=== PATIENT | male | born 1945 | race Caucasian/White ===

== ENCOUNTER 2020-04-11 09:27 | Outpatient (REF) | payer MEDICARE, SELFPAY ==
[2020-04-11 11:53] LABS: Alanine Aminotransferase 9 U/L (0-40); Albumin Level 4.1 g/dL (3.5-5.0); Alkaline Phosphatase 93 U/L (39-117); Anion Gap 11 (12-20); Aspartate Amino Transferase 14 U/L (5-37); Bilirubin Total 0.8 mg/dL (0.0-1.0); Blood Urea Nitrogen 18 mg/dL (9-16); Calcium 8.8 mg/dL (8.4-10.2); Carbon Dioxide 28 mmol/L (22-29); Chloride 105 mmol/L (96-108); Cholesterol 182 mg/dL; Estimated Glomerular Filt Rate > 60; Glucose Fasting 95 mg/dL (60-99); HDL Cholesterol 37 mg/dL; LDL Cholesterol Calculated 130 mg/dl; Potassium 4.3 mmol/L (3.3-5.1); Sodium 140 mmol/L (135-145); Total Protein 7.2 g/dL (6.5-8.0); Triglycerides 77 mg/dL
[2020-04-11 12:18] LABS: Prostate Specific Antigen Scr 1.62 ng/mL (<0.05-4.0); TSH reflex Free T4 1.39 uIU/mL (0.32-4.0)
== END 2020-04-11 09:28 | disposition home or self-care (01) ==
LOC: HO.HMGCLDS 09:27
PROVIDERS: PCP Nurse Practitioner Family; Visit Provider Nurse Practitioner Family
DX: E78.5 Hyperlipidemia, unspecified (principal); Z12.5 Encounter for screening for malignant neoplasm of prostate
CPT/HCPCS: 36415; 80053; 80061; 84153; 84443

== ENCOUNTER 2020-05-17 09:28 | Outpatient (REF) | payer MEDICARE, SELFPAY ==
--- NOTE | ~2020-05-17 | XR_ITS ---
EXAMINATION: XR ANKLE, RIGHT XR FOOT, RIGHT CLINICAL INFORMATION: Pain joints right ankle and right foot. COMPARISON: None TECHNIQUE: Right ankle is imaged in 2 views. The right foot is imaged in 2 views. There is also a lateral view of the combined right ankle and foot for a total of 5 views. FINDINGS: The right ankle shows no fracture or dislocation. The ankle mortise is symmetric and normally aligned. Tibiotalar joint shows no narrowing or erosive change. No visible osteochondral lesion talar dome. There is lateral soft tissue swelling overlying the malleolus. The subtalar joint is unremarkable. There is benign longitudinal mineralization in the distal Achilles consistent with calcific tendinosis. The retrocalcaneal recess is preserved. There is small to moderate plantar calcaneal spur and mild dorsal spurring distal talus. The midfoot and forefoot shows no fracture or dislocation or erosive arthropathy. There are osteoarthritic changes first MTP with bunion, spurring medial first metatarsal head, and hallux valgus. There are vascular calcifications present consistent with atherosclerotic changes. XR/XR foot RT min 3V IMPRESSION: 1. No fracture or dislocation ankle or foot. 2. Calcific tendinosis distal Achilles. Plantar calcaneal spur. 3. Hallux valgus and bunion first MTP with mild secondary degenerative changes. 4. Atherosclerotic calcifications vasculature.
--- NOTE | ~2020-05-17 | XR_ITS ---
EXAMINATION: XR ANKLE, RIGHT XR FOOT, RIGHT CLINICAL INFORMATION: Pain joints right ankle and right foot. COMPARISON: None TECHNIQUE: Right ankle is imaged in 2 views. The right foot is imaged in 2 views. There is also a lateral view of the combined right ankle and foot for a total of 5 views. FINDINGS: The right ankle shows no fracture or dislocation. The ankle mortise is symmetric and normally aligned. Tibiotalar joint shows no narrowing or erosive change. No visible osteochondral lesion talar dome. There is lateral soft tissue swelling overlying the malleolus. The subtalar joint is unremarkable. There is benign longitudinal mineralization in the distal Achilles consistent with calcific tendinosis. The retrocalcaneal recess is preserved. There is small to moderate plantar calcaneal spur and mild dorsal spurring distal talus. The midfoot and forefoot shows no fracture or dislocation or erosive arthropathy. There are osteoarthritic changes first MTP with bunion, spurring medial first metatarsal head, and hallux valgus. There are vascular calcifications present consistent with atherosclerotic changes. XR/XR ankle RT min 3V IMPRESSION: 1. No fracture or dislocation ankle or foot. 2. Calcific tendinosis distal Achilles. Plantar calcaneal spur. 3. Hallux valgus and bunion first MTP with mild secondary degenerative changes. 4. Atherosclerotic calcifications vasculature.
== END 2020-05-17 09:29 | disposition home or self-care (01) ==
LOC: HO.HMGCX 09:28
PROVIDERS: PCP Nurse Practitioner Family; Visit Provider Hospitalist
DX: M25.571 Pain in right ankle and joints of right foot (principal)
CPT/HCPCS: 73610; 73630

== ENCOUNTER 2020-12-17 07:51 | Outpatient (REF) | payer MEDICARE, SELFPAY ==
[2020-12-17 11:42] LABS: Appearance Urine CLEAR; Color Urine YELLOW; Glucose Urine UA NEG (NEG); Leukocyte Esterase Urine TRACE (NEG); Nitrite Urine NEG (NEG); UACC Culture Trigger YES; Urine Blood NEG (NEG); Urine Ketones NEG (NEG); Urine Protein NEG (NEG-TRACE)
[2020-12-17 12:15] LABS: Alanine Aminotransferase 13 U/L (0-40); Albumin Level 3.9 g/dL (3.5-5.0); Alkaline Phosphatase 89 U/L (39-117); Anion Gap 10 (12-20); Aspartate Amino Transferase 15 U/L (5-37); Bilirubin Total 0.6 mg/dL (0.0-1.0); Blood Urea Nitrogen 15 mg/dL (9-16); Calcium 8.4 mg/dL (8.4-10.2); Carbon Dioxide 26 mmol/L (22-29); Chloride 107 mmol/L (96-108); Cholesterol 163 mg/dL; Estimated Glomerular Filt Rate > 60; Glucose Fasting 93 mg/dL (60-99); HDL Cholesterol 37 mg/dL; LDL Cholesterol Calculated 114 mg/dl; Potassium 4.3 mmol/L (3.3-5.1); Sodium 139 mmol/L (135-145); TSH reflex Free T4 1.83 uIU/mL (0.32-4.0); Total Protein 6.7 g/dL (6.5-8.0); Triglycerides 62 mg/dL
[2020-12-17 14:24] LABS: RBC Urine 0 /HPF (0)
== END 2020-12-17 07:52 | disposition home or self-care (01) ==
LOC: HO.HMGCLDS 07:51
PROVIDERS: PCP Nurse Practitioner Family; Visit Provider Nurse Practitioner Family
DX: Z00.00 Encounter for general adult medical examination without abnormal findings (principal)
CPT/HCPCS: 36415; 80053; 80061; 81001; 84443; 87086

== ENCOUNTER 2021-11-05 08:06 | Outpatient (REF) | payer MEDICARE, SELFPAY ==
[2021-11-05 11:59] LABS: Appearance Urine Clear; Color Urine Yellow; Glucose Urine UA Negative (Negative); Leukocyte Esterase Urine Moderate (2+) (Negative); Nitrite Urine Negative (Negative); PH 6.5 (5.0-9.0); UMIC TRIGGER UACC YES; Urine Blood Negative (Negative); Urine Ketones Negative (Negative); Urine Protein Trace mg/dL (Neg-Trace)
[2021-11-05 12:06] LABS: Alanine Aminotransferase 16 U/L (0-40); Albumin Level 4.1 g/dL (3.5-5.0); Alkaline Phosphatase 90 U/L (39-117); Anion Gap 14 (12-20); Aspartate Amino Transferase 16 U/L (5-37); Bilirubin Total 0.4 mg/dL (0.0-1.0); Blood Urea Nitrogen 16 mg/dL (9-16); Calcium 9.1 mg/dL (8.4-10.2); Carbon Dioxide 26 mmol/L (22-29); Chloride 106 mmol/L (96-108); Cholesterol 182 mg/dL; Estimated Glomerular Filt Rate > 60; Glucose Fasting 94 mg/dL (60-99); HDL Cholesterol 35 mg/dL; LDL Cholesterol Calculated 129 mg/dl; Potassium 4.2 mmol/L (3.3-5.1); Sodium 142 mmol/L (135-145); Total Protein 7.2 g/dL (6.5-8.0); Triglycerides 91 mg/dL
[2021-11-05 12:08] LABS: Bacteria Urine None Seen (None Seen); Hyaline Casts Urine 0-2 /LPF (0-2); Squamous Epithelial Cell Urine 0-2 /HPF (0-2); UACC Culture Trigger YES
[2021-11-05 12:12] LABS: TSH reflex Free T4 1.51 uIU/mL (0.32-4.0)
== END 2021-11-05 08:07 | disposition home or self-care (01) ==
LOC: HO.HMGCLDS 08:06
PROVIDERS: PCP Nurse Practitioner Family; Visit Provider Nurse Practitioner Family
DX: Z12.5 Encounter for screening for malignant neoplasm of prostate (principal); I10 Essential (primary) hypertension
CPT/HCPCS: 36415; 80053; 80061; 81001; 81003; 84153; 84443; 87086

== ENCOUNTER 2021-11-12 09:49 | Outpatient (REF) | payer MEDICARE, SELFPAY ==
[2021-11-12 11:24] LABS: Appearance Urine Clear; Color Urine Yellow; Glucose Urine UA Negative (Negative); Leukocyte Esterase Urine Small (1+) (Negative); Nitrite Urine Negative (Negative); Specific Gravity - Urine 1.025 (1.005-1.025); UMIC TRIGGER UA YES; Urine Blood Negative (Negative); Urine Ketones Trace mg/dL (Negative); Urine Protein Negative (Neg-Trace)
[2021-11-12 11:37] LABS: Bacteria Urine None Seen (None Seen); Hyaline Casts Urine 0-2 /LPF (0-2); RBC Urine 0-2 /HPF (0-2); Squamous Epithelial Cell Urine 0-2 /HPF (0-2); WBC Urine 0-5 /HPF (0-5)
== END 2021-11-12 09:50 | disposition home or self-care (01) ==
LOC: HO.HMGCLDS 09:49
PROVIDERS: PCP Nurse Practitioner Family; Visit Provider Nurse Practitioner Family
DX: R82.90 Unspecified abnormal findings in urine (principal)
CPT/HCPCS: 81001; 87086

== ENCOUNTER 2022-07-09 09:07 | Outpatient (REF) | payer MEDICARE, SELFPAY ==
--- NOTE | 2022-07-09 09:30 | EMG_ITS ---
Please see scanned EMG / Nerve Conduction Report. MTDD
== END 2022-07-09 09:08 | disposition home or self-care (01) ==
LOC: HO.NEURO 09:07
PROVIDERS: PCP Nurse Practitioner Family; Visit Provider Nurse Practitioner Family
DX: R20.0 Anesthesia of skin (principal)
CPT/HCPCS: 95885; 95910

== ENCOUNTER 2022-11-17 07:31 | Outpatient (AMB) | payer MEDICARE, SELFPAY ==
--- NOTE | 2022-11-17 07:36 | MHC.PC.OV ---
Vital Signs 11/17/22 07:38 Height 5 ft 3 in Weight 197 lb 2 oz BMI 34.9 BP 130/74 Blood Pressure Location Rt brachial Position Sitting Pulse 78 Pulse Source Pulse Oximeter Pulse Oximetry (%) 94 Oxygen Delivery Method Room Air Intake Visit Reasons: Annual Physical Intake Note: pt had his flu vaccine last week Allergies No Known Allergies [No Known Allergies*] Allergy (Verified 11/17/22 07:44) Medication List - Last Reconciled 11/17/22 by [facility] amlodipine 5 mg PO DAILY aspirin 81 mg PO DAILY doxazosin 2 mg PO BEDTIME losartan 100 mg PO DAILY 90 days omeprazole 40 mg PO QAM Tobacco use date assessed: 11/17/22 Fall risk assessment: No Falls in past year Last assessed Fall Risk: 11/17/22 Dental Screening Dental Screen Date: 11/17/22 Did you have a dental visit in the last 12 months?: Yes Did you have a dental problem in the last 6 months where you did not have access to dental care?: No Was dental information given to patient?: Patient has dentist HPI Annual Physical HPI Details Pt is here for a PE. Will order labs. Colon screen is up to date. Due for PSA, will order. Denies dribbling with urination, weak stream, and nocturia. [facility] Medical History Nephrotic syndrome Dyslipidemia Large B-cell lymphoma GERD (gastroesophageal reflux disease) History of renal failure Surgical History H/O colonoscopy Hx of left inguinal hernia repair History of left knee replacement Social History Housing: House Alcohol intake: never Patient Tobacco Use Status: Never used Tobacco e-Cigarette/Vaping Use: Never Used Second Hand Smoke Exposure: No service: No Current occupational status: retired Cognitive needs: No Hearing needs: No Vision needs: No Questionnaire Thrive Questionnaire Date Thrive assessed: 11/12/21 BALJINDER-7 AMB Questionnaire BALJINDER-7 Date BALJINDER - 7 assessed: 11/12/21 Source: Developed by Drs. Jensen Crocker, Meggan B.W. Wolfgang Nixon and colleagues, with an educational jourdan from [employer]. Review of Systems Const Denies chills and Denies fever(s) Eyes Denies blurry vision ENT Denies vertigo, Denies dizziness and Denies sore throat Card Denies chest pain at rest, Denies chest pain with activity, Denies diaphoresis, Denies dyspnea and Denies dyspnea on exertion Resp Denies cough, Denies dyspnea, Denies dyspnea on exertion and Denies wheezing GI Denies abdominal pain, Denies melena, Denies hematochezia, Denies constipation, Denies diarrhea and Denies loose stools Denies hematuria Musc Denies numbness and Denies tingling Skin/Breast Denies lesions Neuro Denies vertigo, Denies dizziness, Denies numbness and Denies tingling Psych Denies anxiety, Denies depression, Denies homicidal ideation, Denies suicidal ideation and Denies other (substance abuse) Aller/Immun Denies wheezing Physical exam (Primary Care) Vital Signs: Last Vital Signs Pulse 78 11/17/22 07:38 BP 130/74 11/17/22 07:38 Pulse Ox 94 11/17/22 07:38 Oxygen Delivery Method Room Air 11/17/22 07:38 BMI result Body Mass Index 34.9 Tobacco/Smoking Status: Tobacco use Status Tobacco use date assessed 11/17/22 11/17/22 07:46 Patient Tobacco Use Status Never used Tobacco 11/17/22 07:36 e-Cigarette/Vaping Use Never Used 11/17/22 07:36 Thrive Assessment: Date of Thrive Assessment Date Thrive assessed 11/12/21 11/17/22 07:36 Const General: cooperative Nutritional Appearance: obese Orientation/consciousness: patient oriented x3 HENMT Head: Yes normal to inspection, Yes normocephalic and Yes atraumatic Ears: TM's normal bilaterally Eyes General: appearance normal, both eyes and all related structures Alignment and Position: alignment normal and position normal Neck Neck: Yes normal visual inspection and Yes no lymphadenopathy Thyroid: Thyroid normal Resp Effort & Inspection: normal respiratory effort Auscultation: clear to auscultation bilaterally Cardio Rate: regular rate Rhythm: regular rhythm Heart sounds: S1 normal heart sound present, S2 normal heart sound present and no murmurs GI Palpation (GI): Soft to palpation and nontender Auscultation: normal bowel sounds Male General Exam: Yes normal external exam Penis: normal penis Scrotum: scrotum normal, testes descended bilaterally and no inguinal hernias Testes: no testicular mass Skin Rashes: no rashes Neuro General: patient oriented x3, moves all extremities, no focal motor deficits and deep tendon reflexes 2+ bilaterally Romberg Test: Negative Psych Appearance: grossly normal Mental Status: mental status grossly normal Speech and movement: Normal speech and movement present Affect: normal affect Attitude: cooperative Thought process: Normal thought process present Thought content: Normal thought content present Insight: Good insight present (Psych) Judgement: Good judgement present (Psych) Assessment and Plan Assessment & Plan (1) Physical exam: Code(s): Z00.00 - Encounter for general adult medical examination without abnormal findings Plan: Labs ordered (2) Screening PSA (prostate specific antigen): Code(s): Z12.5 - Encounter for screening for malignant neoplasm of prostate Plan: PSA ordered Plan The patient agreed to the use of a medical device sales representative for this encounter. Scribed for PABLITO Vuong by Teri Ness medical device sales representative, on 11/17/2022 at 07:55 EST Orders: Orders Complete Blood Count Auto Diff Today Z00.00 - Encounter for general adult medical examination without abnormal findings TSH reflex Free T4 Today Z00.00 - Encounter for general adult medical examination without abnormal findings UA CC w/rflx Micro + Cult Today Z00.00 - Encounter for general adult medical examination without abnormal findings Comprehensive [place]. Panel Fast Today Z00.00 - Encounter for general adult medical examination without abnormal findings Lipid Panel Today Z00.00 - Encounter for general adult medical examination without abnormal findings Prostate Specific Antigen Scr Today Z12.5 - Encounter for screening for malignant neoplasm of prostate Coding Level of Care Code Est Pt Prev Care >65y(05596) Diagnoses Physical exam Z00.00 Screening PSA (prostate specific antigen) Z12.5
[2022-11-17 07:38] VITALS: BP 130/74; PULSE 78; O2SAT 94; BMI 34.9
== END 2022-11-17 08:34 | disposition home or self-care (01) ==
PROVIDERS: Visit Provider Nurse Practitioner Family
DX: Z00.00 Encounter for general adult medical examination without abnormal findings (principal); Z12.5 Encounter for screening for malignant neoplasm of prostate
CPT/HCPCS: 99397

== ENCOUNTER 2023-03-12 07:41 | Outpatient (REF) | payer MEDICARE, SELFPAY ==
[2023-03-12 11:16] LABS: MANUAL DIFF FLAG NO
[2023-03-12 11:27] LABS: Appearance Urine Clear; Color Urine Yellow; Glucose Urine UA Negative (Negative); Leukocyte Esterase Urine Trace (Negative); Nitrite Urine Negative (Negative); PH 6.5 (5.0-9.0); UMIC TRIGGER UACC YES; Urine Blood Negative (Negative); Urine Ketones Negative (Negative); Urine Protein Negative (Neg-Trace)
[2023-03-12 11:33] LABS: Bacteria Urine None Seen (None Seen); Hyaline Casts Urine 0-2 /LPF (0-2); RBC Urine 0-2 /HPF (0-2); Squamous Epithelial Cell Urine 0-2 /HPF (0-2); WBC Urine 0-5 /HPF (0-5)
[2023-03-12 11:46] LABS: Basophils Absolute Auto 0.1 X10*3/uL (0.0-0.2); Basophils Percent Auto 0.8 % (0-2); Eosinophils Absolute Auto 0.1 X10*3/uL (0.0-0.4); Eosinophils Percent Auto 1.6 % (0-4); Hematocrit 39.9 % (42.0-52.0); Hemoglobin 13.1 g/dl (14.0-18.0); Imm Gran Abs Auto 0.01 X10*3/uL (0.00-0.03); Imm Gran Pct Auto 0.2 % (0.0-0.4); Lymphocytes Absolute Auto 1.6 X10*3/uL (1.2-4.9); Lymphocytes Percent Auto 24.9 % (20-40); Mean Corpuscular HGB Conc 32.8 g/dl (31.0-36.0); Mean Corpuscular Hemoglobin 31.3 pg (27.0-33.0); Mean Corpuscular Volume 95.2 fL (80.0-98.0); Mean Platelet Volume 9.8 fL (9.4-12.4); Monocytes Absolute Auto 0.6 X10*3/uL (0.1-1.2); Monocytes Percent Auto 9.4 % (2-11); Neutrophils Percent Auto 63.1 % (45-73); Platelet Count 202 X10*3/uL (160-400); Red Blood Count 4.19 X10*6/uL (4.60-5.80); Red Cell Distribution Width 13.2 % (11.0-16.0); White Blood Count 6.3 X10*3/uL (4.8-10.8)
[2023-03-12 12:04] LABS: Alanine Aminotransferase 13 U/L (0-40); Albumin Level 3.9 g/dL (3.5-5.0); Alkaline Phosphatase 83 U/L (39-117); Anion Gap 10 (12-20); Aspartate Amino Transferase 16 U/L (5-37); Bilirubin Total 0.4 mg/dL (0.0-1.0); Blood Urea Nitrogen 17 mg/dL (9-16); Calcium 9.3 mg/dL (8.4-10.2); Carbon Dioxide 27 mmol/L (22-29); Chloride 107 mmol/L (96-108); Cholesterol 170 mg/dL (<200); Estimated Glomerular Filt Rate > 60; Glucose Fasting 87 mg/dL (60-99); HDL Cholesterol 44 mg/dL (>40); LDL Cholesterol Calculated 114 mg/dL (<100); Potassium 4.2 mmol/L (3.3-5.1); Sodium 140 mmol/L (135-145); Total Protein 7.4 g/dL (6.5-8.0); Triglycerides 61 mg/dL (<150)
[2023-03-12 12:10] LABS: Prostate Specific Antigen Scr 1.66 ng/mL (<0.05-4.0)
[2023-03-12 12:30] LABS: TSH reflex Free T4 1.67 uIU/mL (0.32-4.0)
== END 2023-03-12 07:42 | disposition home or self-care (01) ==
LOC: HO.HMGCLDS 07:41
PROVIDERS: PCP Nurse Practitioner Family; Visit Provider Nurse Practitioner Family
DX: Z00.00 Encounter for general adult medical examination without abnormal findings (principal); Z12.5 Encounter for screening for malignant neoplasm of prostate
CPT/HCPCS: 36415; 80053; 80061; 81001; 84153; 84443; 85025

== ENCOUNTER 2023-06-01 14:39 | Outpatient (AMB) | payer MEDICARE, SELFPAY ==
--- NOTE | 2023-06-01 15:07 | A.OFFPC_ITS ---
Vital Signs 06/01/23 15:08 Height 5 ft 3 in Weight 202 lb BMI 35.8 BP 130/84 Blood Pressure Location Lt brachial Position Sitting Pulse 70 Pulse Source Pulse Oximeter Pulse Oximetry (%) 95 Oxygen Delivery Method Room Air Intake Visit Reasons: RT TKA Pre Op on 06/17/2023 w/EKG Intake Note: Patient here for pre op clearance. Allergies No Known Allergies [No Known Allergies*] Allergy (Verified 06/01/23 16:37) Medication List - Last Reconciled 06/01/23 by PABLITO Loco amlodipine 5 mg PO DAILY aspirin 81 mg PO DAILY doxazosin 2 mg PO BEDTIME losartan 100 mg PO DAILY 90 days omeprazole 40 mg PO QAM Tobacco use date assessed: 06/01/23 Fall risk assessment: No Falls in past year Last assessed Fall Risk: 06/01/23 Dental Screening Dental Screen Date: 06/01/23 Did you have a dental visit in the last 12 months?: No Did you have a dental problem in the last 6 months where you did not have access to dental care?: No Was dental information given to patient?: Patient has dentist HPI RT TKA Pre Op on 06/17/2023 w/EKG HPI Details Pt is here for a pre-op evaluation. He is scheduled to undergo a right TKA on 06/16. EKG done in office. Will order labs. [facility] Medical History Nephrotic syndrome Dyslipidemia Large B-cell lymphoma GERD (gastroesophageal reflux disease) History of renal failure Surgical History H/O colonoscopy Hx of left inguinal hernia repair History of left knee replacement Social History Housing: House Alcohol intake: never Patient Tobacco Use Status: Never used Tobacco e-Cigarette/Vaping Use: Never Used Second Hand Smoke Exposure: No service: No Current occupational status: retired Cognitive needs: No Hearing needs: No Vision needs: No Questionnaire Thrive Questionnaire Date Thrive assessed: 11/12/21 AUDIT C Alcohol Use Questionnaire (AUDIT-C) 1. How often do you have a drink containing alcohol?: Never 3. How often do you have six or more drinks on one occasion?: Never Total Score: 0 Score Reviewed/Action Taken: No BALJINDER-7 AMB Questionnaire BALJINDER-7 Date BALJINDER - 7 assessed: 11/12/21 Source: Developed by Drs. Jensen Crocker, Meggan Nixon, Wolfgang Byrd and colleagues, with an educational jourdan from [employer]. Review of Systems Const Denies chills and Denies fever(s) Eyes Denies blurry vision ENT Denies vertigo, Denies dizziness and Denies sore throat Card Denies chest pain at rest, Denies chest pain with activity, Denies diaphoresis, Denies dyspnea and Denies dyspnea on exertion Resp Denies cough, Denies dyspnea, Denies dyspnea on exertion and Denies wheezing GI Denies abdominal pain, Denies melena, Denies hematochezia, Denies constipation, Denies diarrhea and Denies loose stools Denies hematuria Musc Denies numbness and Denies tingling Skin/Breast Denies lesions Neuro Denies vertigo, Denies dizziness, Denies numbness and Denies tingling Psych Denies anxiety, Denies depression, Denies homicidal ideation, Denies suicidal ideation and Denies other (substance abuse) Aller/Immun Denies wheezing Physical exam (Primary Care) Vital Signs: Last Vital Signs Pulse 70 06/01/23 15:08 BP 130/84 06/01/23 15:08 Pulse Ox 95 06/01/23 15:08 Oxygen Delivery Method Room Air 06/01/23 15:08 BMI result Body Mass Index 35.8 Tobacco/Smoking Status: Tobacco use Status Tobacco use date assessed 06/01/23 06/01/23 15:10 Patient Tobacco Use Status Never used Tobacco 06/01/23 15:10 e-Cigarette/Vaping Use Never Used 06/01/23 15:10 Thrive Assessment: Date of Thrive Assessment Date Thrive assessed 11/12/21 06/01/23 15:10 Const General: cooperative Nutritional Appearance: obese Orientation/consciousness: patient oriented x3 Neck Neck: Yes no lymphadenopathy Resp Effort & Inspection: normal respiratory effort Auscultation: clear to auscultation bilaterally Cardio Rate: regular rate Rhythm: regular rhythm Heart sounds: S1 normal heart sound present, S2 normal heart sound present and no murmurs Neuro General: patient oriented x3 Psych Appearance: grossly normal Mental Status: mental status grossly normal Speech and movement: Normal speech and movement present Affect: normal affect Attitude: cooperative Thought process: Normal thought process present Thought content: Normal thought content present Insight: Good insight present (Psych) Judgement: Good judgement present (Psych) Assessment and Plan Assessment & Plan (1) Pre-op evaluation: Code(s): Z01.818 - Encounter for other preprocedural examination Plan: EKG done, labs ordered Plan The patient agreed to the use of a senior medical billing specialist for this encounter. Scribed for ELADIO Vuong-BC by Teri Ness senior medical billing specialist, on 06/01/2023 at 15:40 EST. Orders: Orders Comprehensive [place]. Panel Today Z01.818 - Encounter for other preprocedural examination UA CC w/rflx Micro + Cult Today Z01.818 - Encounter for other preprocedural examination Complete Blood Count Auto Diff Today Z01.818 - Encounter for other preprocedural examination TSH reflex Free T4 Today Z01.818 - Encounter for other preprocedural examination Medications: Refilled omeprazole 40 mg PO QAM 90 caps 1RF Coding Level of Care Code Est Pt Prev Care >65y(76097) Diagnoses Pre-op evaluation Z01.818
[2023-06-01 15:08] VITALS: BP 130/84; PULSE 70; O2SAT 95; BMI 35.8
== END 2023-06-01 16:32 | disposition home or self-care (01) ==
LOC: HO.HMGC 14:39
PROVIDERS: PCP Nurse Practitioner Family; Visit Provider Nurse Practitioner Family
DX: Z01.818 Encounter for other preprocedural examination (principal)
CPT/HCPCS: 93000; 99213

== ENCOUNTER 2023-06-11 09:59 | Outpatient (REF) | payer MEDICARE, SELFPAY ==
[2023-06-11 13:09] LABS: MANUAL DIFF FLAG NO
[2023-06-11 13:12] LABS: Appearance Urine Clear; Color Urine Yellow; Glucose Urine UA Negative (Negative); Leukocyte Esterase Urine Negative (Negative); Nitrite Urine Negative (Negative); PH 7.5 (5.0-9.0); Urine Blood Negative (Negative); Urine Ketones Negative (Negative); Urine Protein Negative (Neg-Trace)
[2023-06-11 13:20] LABS: Basophils Percent Auto 0.5 % (0-2); Eosinophils Absolute Auto 0.1 X10*3/uL (0.0-0.4); Eosinophils Percent Auto 1.5 % (0-4); Hematocrit 38.1 % (42.0-52.0); Hemoglobin 12.6 g/dl (14.0-18.0); Imm Gran Abs Auto 0.02 X10*3/uL (0.00-0.03); Imm Gran Pct Auto 0.3 % (0.0-0.4); Lymphocytes Absolute Auto 1.6 X10*3/uL (1.2-4.9); Mean Corpuscular HGB Conc 33.1 g/dl (31.0-36.0); Mean Corpuscular Hemoglobin 31.5 pg (27.0-33.0); Mean Corpuscular Volume 95.3 fL (80.0-98.0); Mean Platelet Volume 10.1 fL (9.4-12.4); Monocytes Absolute Auto 0.7 X10*3/uL (0.1-1.2); Neutrophils Absolute Auto 4.1 x10*3/uL (2.0-8.3); Neutrophils Percent Auto 63.7 % (45-73); Platelet Count 198 X10*3/uL (160-400); Red Cell Distribution Width 13.4 % (11.0-16.0); White Blood Count 6.5 X10*3/uL (4.8-10.8)
[2023-06-11 14:03] LABS: Alanine Aminotransferase 12 U/L (0-40); Albumin Level 3.9 g/dL (3.5-5.0); Alkaline Phosphatase 84 U/L (39-117); Anion Gap 13 (12-20); Aspartate Amino Transferase 15 U/L (5-37); Bilirubin Total 0.3 mg/dL (0.0-1.0); Blood Urea Nitrogen 24 mg/dL (9-16); Calcium 9.3 mg/dL (8.4-10.2); Carbon Dioxide 25 mmol/L (22-29); Chloride 107 mmol/L (96-108); Estimated Glomerular Filt Rate > 60; Glucose Random 84 mg/dL (60-115); Potassium 4.8 mmol/L (3.3-5.1); Sodium 140 mmol/L (135-145); Total Protein 7.6 g/dL (6.5-8.0)
[2023-06-11 14:09] LABS: TSH reflex Free T4 1.49 uIU/mL (0.32-4.0)
== END 2023-06-11 10:00 | disposition home or self-care (01) ==
LOC: HO.HMGCLDS 09:59
PROVIDERS: PCP Nurse Practitioner Family; Visit Provider Nurse Practitioner Family
DX: Z01.818 Encounter for other preprocedural examination (principal)
CPT/HCPCS: 36415; 80053; 81003; 84443; 85025

== ENCOUNTER 2024-04-21 09:48 | Outpatient (AMB) | payer MEDICARE, SELFPAY ==
[2024-04-21 10:19] VITALS: BP 136/80; PULSE 85; TEMP 36.7; O2SAT 96; BMI 36.1
--- NOTE | 2024-04-21 10:19 | MHC.PC.OV ---
Vital Signs 04/21/24 10:19 Height 5 ft 3 in Weight 204 lb BMI 36.1 BP 136/80 Blood Pressure Location Lt brachial Position Sitting Pulse 85 Pulse Source Pulse Oximeter Temp 98.0 F Temp Source Oral Pulse Oximetry (%) 96 Intake Visit Reasons: follow up re back pain Intake Note: pt is here for follow up re back pain Infrastructure Solutions Architect Required: No Accompanied by: Self / Same As Patient Allergies No Known Allergies [No Known Allergies*] Allergy (Verified 04/21/24 11:09) Medication List - Last Reconciled 04/21/24 by Carter Zavala, [employer]TER- amlodipine 5 mg PO DAILY aspirin 81 mg PO DAILY doxazosin 2 mg PO BEDTIME losartan 100 mg PO DAILY 90 days omeprazole 40 mg PO QAM Tobacco use date assessed: 04/21/24 Fall risk assessment: No Falls in past year Last assessed Fall Risk: 04/21/24 Dental Screening Dental Screen Date: 04/21/24 Did you have a dental visit in the last 12 months?: Yes Did you have a dental problem in the last 6 months where you did not have access to dental care?: No Was dental information given to patient?: Patient has dentist HPI follow up re back pain HPI Details Chief Complaint The patient presents with persistent lower back pain radiating to the lower extremities. History of Present Illness The patient is a 78-year-old male presenting for a follow-up appointment. He has been experiencing lower back pain since undergoing knee surgery approx a year ago, with pain radiating to his lower extremities. Evaluation included X-rays leading to an MRI, which showed multilevel lumbar spondylitic changes. There is significant spinal canal stenosis at L3-L4 and L4-L5. He denies any history of cauda equina syndrome symptoms. He is also found to have incidental ? renal cysts, with the largest measuring 10 cm on the right kidney, yet reports no associated symptoms. NOTE: hx of nephrotic syndrome, has seen nephro in the past Social History Health Maintenance Review of Systems - Urinary: Denies hematuria, fever, chills Physical Exam General: Cooperative, healthy appearing, comfortable, no acute distress and well developed, obese Orientation: Patient oriented x3 Limitations: No limitations Head: Normal to inspection Ears: Hearing grossly normal bilaterally Nose: Normal external nose present Face and sinus: Normal facial exam Eyes: Appearance normal, both eyes and all related structures Neck: Normal visual inspection and Yes full ROM Respiratory: Normal respiratory effort and able to speak in complete sentences. Clear to auscultation bilaterally Cardiovascular: Regular rate and rhythm. Normal S1 and S2 GI: Normal to inspection. Soft to palpation and nontender : no cva tenderness noted bilat Skin: No rashes or lesions noted Neuro: Patient oriented x3 Extremities: Radiculopathy down by the lower extremities Results - MRI showing multilevel lumbar spondylitic changes with severe spinal canal stenosis at L3-L4 and moderate severe spinal canal stenosis at L4-L5 - Incidental finding of T2 hyperintense renal structures, largest cyst at right kidney measuring 10 cm Plan The plan includes proceeding with the back injection for lower back pain and radiculopathy management. An ultrasound will be ordered to evaluate the incidental renal cysts further. The patient will continue follow-up care with his client relation specialist. Discussion Notes During this visit, we discussed the MRI findings of lumbar spondylitic changes and spinal stenosis as the likely cause of the patient's ongoing symptoms. I explained the rationale for the scheduled back injection, highlighting its potential benefits in reducing pain and improving mobility. We reviewed the incidental finding of renal cysts, stressing the importance of further evaluation via ultrasound. The patient was informed of the potential risks and benefits of these approaches and consented to the plan. Follow-up and any necessary interventions will be determined based on the ultrasound results. Patient Instructions - Continue with plans for a back injection as scheduled. - Await appointment for renal ultrasound evaluation. - Report any new symptoms, such as changes in urine or appearance of fever or chills, immediately. - Follow up with the client relation specialist as scheduled. [facility] Medical History Nephrotic syndrome Dyslipidemia Large B-cell lymphoma GERD (gastroesophageal reflux disease) History of renal failure Surgical History History of total right knee replacement H/O colonoscopy Hx of left inguinal hernia repair History of left knee replacement Social History Housing: House Alcohol intake: never Patient Tobacco Use Status: Never used Tobacco e-Cigarette/Vaping Use: Never Used Second Hand Smoke Exposure: No service: No Current occupational status: retired Cognitive needs: No Hearing needs: No Vision needs: No Questionnaire Thrive Questionnaire Date Thrive assessed: 04/21/24 I am a: Patient What is your living situation today?: I have a steady place to live Within the past 12 months, did the food you bought not last and you didn't have the money to get more?: Never true Within the past 12 months, did you worry whether your food would run out before you got money to buy more?: Never true Do you have trouble paying for medicines?: No Do you have trouble getting transportation to medical appointments?: No Do you have trouble paying your heating and electricity bill?: No Do you have trouble taking care of your child, family member or friend?: No Do you have trouble with day-to-day activities such as bathing, preparing meals, shopping, managing finances, etc.?: No Are you currently unemployed and looking for a job?: No Are you interested in more education?: No Please select the resources that you would like help with: None Currently or been in a relationship where the following occur: No concerns reported THRIVE Score: 0 AUDIT C Alcohol Use Questionnaire (AUDIT-C) 1. How often do you have a drink containing alcohol?: Never 3. How often do you have six or more drinks on one occasion?: Never Total Score: 0 Score Reviewed/Action Taken: Yes BALJINDER-7 AMB Questionnaire BALJINDER-7 Date BALJINDER - 7 assessed: 11/12/21 Feeling nervous, anxious, or on edge: 0 = Not at all Not being able to stop or control worryin = Not at all Worrying too much about different things: 0 = Not at all Trouble relaxin = Not at all Being so restless that it is hard to sit still: 0 = Not at all Becoming easily annoyed or irritable: 0 = Not at all Feeling afraid as if something awful might happen: 0 = Not at all Total BALJINDER-7 score (0-4 normal; 5-9 mild; 10-14 moderate; 15-21 severe): 0 Source: Developed by Drs. Jensen Crocker, Meggan Nixon, Wolfgang Byrd and colleagues, with an educational jourdan from [employer] BALJINDER-7 Assessment Billing BALJINDER-7 Assessment Tool: BALJINDER-7 Assessment 51384 Physical exam (Primary Care) Vital Signs: Last Vital Signs Temp 98.0 F 04/21/24 10:19 Pulse 85 04/21/24 10:19 BP 136/80 04/21/24 10:19 Pulse Ox 96 04/21/24 10:19 BMI result Body Mass Index 36.1 Tobacco/Smoking Status: Tobacco use Status Tobacco use date assessed 04/21/24 04/21/24 10:23 Patient Tobacco Use Status Never used Tobacco 04/21/24 10:23 e-Cigarette/Vaping Use Never Used 04/21/24 10:23 Thrive Assessment: Date of Thrive Assessment Date Thrive assessed 04/21/24 04/21/24 10:23 Currently or been in a relationship where the following occur: No concerns reported Coding Level of Care Code Est Pt Level 3 (73582) Diagnoses Morbid obesity E66.01 Lumbar stenosis M48.061 Chronic radicular pain of lower back M54.16; G89.29 Lesion of both knik kidneys N28.9 Additional Codes BALJINDER-7 Assessment Billing - BALJINDER-7 Assessment Tool: BALJINDER-7 Assessment [id number] ([id number]) Assessment & Plan Assessment & Plan (1) Morbid obesity: Code(s): E66.01 - Morbid (severe) obesity due to excess calories Category: Medical (2) Lumbar stenosis: Code(s): M48.061 - Spinal stenosis, lumbar region without neurogenic claudication Category: Medical (3) Chronic radicular pain of lower back: Code(s): M54.16 - Radiculopathy, lumbar region; G89.29 - Other chronic pain Category: Medical (4) Lesion of both knik kidneys: Code(s): N28.9 - Disorder of kidney and ureter, unspecified Category: Medical Plan . Orders: Orders US renal BI Today N28.9 - Disorder of kidney and ureter, unspecified Complete Blood Count Auto Diff Today E66.01 - Morbid (severe) obesity due to excess calories, G89.29 - Other chronic pain, M54.16 - Radiculopathy, lumbar region, N28.9 - Disorder of kidney and ureter, unspecified TSH reflex Free T4 Today E66.01 - Morbid (severe) obesity due to excess calories, G89.29 - Other chronic pain, M54.16 - Radiculopathy, lumbar region, N28.9 - Disorder of kidney and ureter, unspecified Comprehensive [place]. Panel Fast Today E66.01 - Morbid (severe) obesity due to excess calories, G89.29 - Other chronic pain, M54.16 - Radiculopathy, lumbar region, N28.9 - Disorder of kidney and ureter, unspecified UA CC w/rflx Micro + Cult Today E66.01 - Morbid (severe) obesity due to excess calories, G89.29 - Other chronic pain, M54.16 - Radiculopathy, lumbar region, N28.9 - Disorder of kidney and ureter, unspecified Lipid Panel Today E66.01 - Morbid (severe) obesity due to excess calories, G89.29 - Other chronic pain, M54.16 - Radiculopathy, lumbar region, N28.9 - Disorder of kidney and ureter, unspecified
--- OUTSIDE RECORDS SUMMARY | 2024-04-21 11:54 | XMS_ITS | Encounter Summary ---
Author Organization [facility] Address [address] [place] [address] Care Team Providers Care Story Writer Name Role Phone Berta Lindsay Md, MD Primary Care Provider Unavailable Encounter Details Date Type Department Care Team Description 09/15/2023 SCAN [facility] Medical [facility] 175 [facility] [address] [place] [phone] Sriram Ahn MD 175 [facility] [address] [place], [place] [phone] Social History Tobacco Use Types Packs/Day Years Used Date Smoking Tobacco: Never Smokeless Tobacco: Never Alcohol Use Standard Drinks/Week Comments No 0 (1 standard drink = 0.6 oz pur e alcohol) Sex Assigned at Date Recorded Not on file documented as of this encounter Plan of Treatment Not on file documented as of this encounter Visit Diagnoses Not on filedocumented in this encounter Care Teams Story Writer Relationship Specialty Start Date End Date Berta Lindsay MD, MD PCP - General Internal Medicine 04/19/21 documented as of this encounter
--- OUTSIDE RECORDS SUMMARY | 2024-04-21 11:54 | XMS_ITS | Encounter Summary ---
Author Organization [facility] Address [address] [place] [address] Care Team Providers Care Compressor Assembler Name Role Phone Farrah Goodman Primary Care Provider UnavailLara Garrett Primary Care Provider UnavailBerta Funk Md, MD Primary Care Provider Unavailable Encounter Details Date Type Department Care Team Description 01/08/2018 Transfer Records Medical Records [address] [place] [id number] Abstract, Provider Social History Tobacco Use Types Packs/Day Years [...] on filedocumented in this encounter Care Teams Compressor Assembler Relationship Specialty Start Date End Date Farrah Goodman PCP - General 06/16/07 01/18/18 Lara Reddy PCP - General Geriatrics 01/19/18 12/30/18 Berta Lindsay MD, PCP - General Internal Medicine 04/19/21 documented as of this encounter
--- OUTSIDE RECORDS SUMMARY | 2024-04-21 11:54 | XMS_ITS | Encounter Summary ---
Author Organization [facility] Address [address] [place] [address] Care Team Providers Care Gas Load Dispatcher Name Role Phone Berta Lindsay Md, MD Primary Care Provider Unavailable Encounter Details Date Type Department Care Team Description 09/07/[address] [facility] Medical [facility] [address] [facility] [address] [place] [phone] Sriram Ahn MD 175 [facility] [address] [place], [place] [phone] Social History Tobacco Use Types Packs/Day Years [...] on filedocumented in this encounter Care Teams Gas Load Dispatcher Relationship Specialty Start Date End Date Berta Lindsay MD, MD PCP - General Internal Medicine 04/19/21 documented as of this encounter
--- OUTSIDE RECORDS SUMMARY | 2024-04-21 11:54 | XMS_ITS | Encounter Summary ---
Author Organization [facility] Address [address] [place] [address] Care Team Providers Care Hand Mold Maker Name Role Phone Berta Lindsay Md, MD Primary Care Provider Unavailable Encounter Details Date Type Department Care Team Description 09/15/2023 SCAN [facility] 175 [facility] [address] [place] [phone] Sriram Ahn MD 175 [facility] [address] [place], [place] [phone] Social History Tobacco Use Types Packs/Day Years [...] on filedocumented in this encounter Care Teams Hand Mold Maker Relationship Specialty Start Date End Date Berta Lindsay MD, MD PCP - General Internal Medicine 04/19/21 documented as of this encounter
--- OUTSIDE RECORDS SUMMARY | 2024-04-21 11:54 | XMS_ITS | Clinical Summary ---
Author Organization [facility] Address [address] [place] [address] Phone Care Team Providers Care Freight Air Brake Fitter Name Role Phone Skye Lindsay MD Primary Care Provider [phone] Allergies No known active allergies Medications losartan (COZAAR) 100 MG tablet Take 1 tablet (100 mg total) by mouth 1 (one) time each day 90 tablet 2 04/20/2020 Active aspirin (ST MARIELA) 81 MG EC tablet Take 1 tablet by mouth 1 (one) time each day Active omeprazole (PriLOSEC) [address] capsule Take 1 capsule by mouth 1 (one) time each day Active amLODIPine (NORVASC) 5 MG tablet Take 5 mg by mouth 1 (one) time each day 05/15/2021 Active doxazosin (CARDURA) 2 MG tablet Take 1 tablet by mouth at bed time 03/26/2021 Active Active Problems Problem Noted Date Diagnosed Date Chronic kidney disease, stage 2 (mild) Edema 05/14/2020 Benign essential hypertension 05/14/2020 Nephrotic syndrome 05/14/2020 Chronic kidney disease 01/20/2018 Gastroesophageal reflux disease 01/20/2018 Hyperlipidemia 01/20/2018 Hypertension 01/20/2018 History of repair of inguinal hernia 12/08/2017 Family History Medical History Relation Comments Hypertension Father Cancer Mother Hypertension Mother Relation Status Comments Father Mother Social History Tobacco Use Types Packs/Day Years Used Date Smoking Tobacco: Never Alcohol Use Standard Drinks/Week Comments No 0 (1 standard drink = 0.6 oz pur e alcohol) Sex and Gender Information Value Date Recorded Sex Assigned at Not on file Legal Sex Male 5:21 PM EST Gender Identity Not on file Sexual Orientation Not on file Last Filed Vital Signs Vital Sign Reading Time Taken Comments Blood Pressure 119/60 07/16/2022 12:56 PM EDT Pulse 67 07/16/2022 12:56 PM EDT Temperature - - Respiratory Rate - - Oxygen Saturation 98% 07/16/2022 12:56 PM EDT Inhaled Oxygen Concentration - - Weight 89.6 kg (197 lb 9.6 oz) 07/16/2022 12:56 PM EDT Height 160 cm (5' 3 ) 11/03/2018 12:00 PM EDT Body Mass Index 35 11/03/2018 12:00 PM EDT Plan of Treatment Health Maintenance Due Date Last Done Comments Pneumococcal Vaccine: 65+ Ye ars (1 of 2 - PCV) 1951 Influenza Vaccine (#1) 2023 Hepatitis B Vaccine Aged Out No longe r eligible based on patient's age to complete this topic Insurance [facility] MEDIC[facility] Care Teams Freight Air Brake Fitter Relationship Specialty Start Date End Date Skye Lindsay MD [address] [place] [address] PCP - General 02/20/20
--- OUTSIDE RECORDS SUMMARY | 2024-04-21 11:54 | XMS_ITS | Encounter Summary ---
Author Organization [employer] [facility] Address [address] [place] [address] Care Team Providers Care Digital Account Director Name Role Phone Farrah Goodman Primary Care Provider UnavailLara Garrett Primary Care Provider UnavaileBrta Funk Md, MD Primary Care Provider Unavailable Encounter Details Date Type Department Care Team Description 12/09/2017 Release of Information Medical Records [address] [place] [id number] Abstract, Provider Social History Tobacco Use Types [...] on filedocumented in this encounter Care Teams Digital Account Director Relationship Specialty Start Date End Date Farrah Goodman PCP - General 06/16/07 01/18/18 Lara Reddy PCP - General Geriatrics 01/19/18 12/30/18 Berta Lindsay MD, PCP - General Internal Medicine 04/19/21 documented as of this encounter
--- OUTSIDE RECORDS SUMMARY | 2024-04-21 11:54 | XMS_ITS | Encounter Summary ---
Author Organization [facility] Address [address] [place] [address] Care Team Providers Care Skilled Laborer Name Role Phone Berta Lindsay Md, MD Primary Care Provider Unavailable Encounter Details Date Type Department Care Team Description 06/02/2023 SCAN [facility] - [facility] 175 [facility] [address] [place] [phone] Sriram Ahn MD 175 [facility] [address] [place], [place] [phone] Social History Tobacco Use Types Packs/Day Years [...] on filedocumented in this encounter Care Teams Skilled Laborer Relationship Specialty Start Date End Date Berta Lindsay MD, MD PCP - General Internal Medicine 04/19/21 documented as of this encounter
--- OUTSIDE RECORDS SUMMARY | 2024-04-21 11:54 | XMS_ITS | Encounter Summary ---
Author Organization [facility] Address [address] [place] [address] Care Team Providers Care Cash Application Representative Name Role Phone Berta Lindsay Md, MD Primary Care Provider Unavailable Encounter Details Date Type Department Care Team Description 08/10/2023 [facility] Medical [facility] - [facility] 175 [facility] [address] [place] [phone] Sriram Ahn MD 175 [facility] [address] [place] [address] Social History Tobacco Use Types Packs/Day Years [...] on filedocumented in this encounter Care Teams Cash Application Representative Relationship Specialty Start Date End Date Berta Lindsay MD, MD PCP - General Internal Medicine 04/19/21 documented as of this encounter
--- OUTSIDE RECORDS SUMMARY | 2024-04-21 11:54 | XMS_ITS | Clinical Summary ---
Author Organization 175 [facility] Address [address] [place] [address] Phone Care Team Providers Care Product Support Specialist Name Role Phone Berta Lindsay MD Primary Care Provider [phone] Allergies No known active allergies Medications amLODIPine (NORVASC) 5 mg tablet Take 5 mg by mouth daily. Active aspirin 81 mg EC tablet Take 81 mg by mouth daily. 01/15/2021 Active doxazosin (CARDURA) 2 mg tablet TAKE 1 TABLET BY MOUTH AT BEDTIME 03/26/2021 Active losartan (COZAAR) 100 mg tablet Take 1 Tablet by mouth daily. 12/19/2022 Active naproxen (NAPROSYN) 500 mg tablet Active omeprazole (PriLOSEC) [address] capsule Take 40 mg by mouth daily. Active sulfamethoxazol e-trimethoprim (BACTRIM DS,SEPTRA DS) 800-160 mg per tablet 06/18/2023 Active traMADoL (ULTRAM) 50 mg tablet 06/18/2023 Active tranexamic acid (LYSTEDA) 650 mg tablet tablet 06/18/2023 Active Active Problems Problem Noted Date Diagnosed Date Status post total right knee replacement 024 Primary osteoarthritis of right knee 03/02/2023 Status post total left knee replacement 03/02/19 24 CKD (chronic kidney disease) 01/20/2018 GERD (gastroesophageal reflux disease) 8 Hyperlipidemia 01/20/2018 Hypertension 01/20/2018 Surgical History Surgery Date Site/Laterality Comments TOTAL KNEE ARTHROPLASTY 08/2018 Left PROCEDURE: HISTORICAL TOTAL KNEE REPLACE; COMMENT: Dr Morrissey KNEE SURGERY 2007 Right PROCEDURE: HISTORICAL KNEE SURGERY; COMMENT: Foreign Body Excision and Debridement Medical History Medical History Date Comments Hx of lymphoma 2011 DX:Hx of lymphom a; COMMENT: Hx of Lymphoma CA 2012 Social History Tobacco Use Types Packs/Day Years Used Date Smoking Tobacco: Never Smokeless Tobacco: Never Alcohol Use Standard Drinks/Week Comments No 0 (1 standard drink = 0.6 oz pur e alcohol) Sex and Gender Information Value Date Recorded Sex Assigned at Not on file Legal Sex Male 5:06 AM EST Gender Identity Not on file Sexual Orientation Not on file Obstetrics History Last Filed Vital Signs Vital Sign Reading Time Taken Comments Blood Pressure 144/86 05/28/2023 1:48 PM EDT Si tting L Arm Pulse 74 05/28/2023 1:48 PM EDT Temperature - - Respiratory Rate - - Oxygen Saturation - - Inhaled Oxygen Concentration - - Weight 91.2 kg (201 lb) 05/28/2023 1:48 PM EDT Height 160 cm (5' 3 ) 05/28/2023 1:48 PM EDT Body Mass Index 35.61 05/28/2023 1:48 PM EDT Plan of Treatment Upcoming Encounters Date Type Department Care Team (Late st Contact Info) Description 06/16/2024 8:30 AM EDT Office Visit Orthopedic Surgery - [place] [address] [phone] Sriram Ahn MD [address] [address] Health Maintenance Due Date Last Done Comments Zoster Vaccines (2 of 3) 01/04/2014 11/09/2013 RSV Immunization Patients 60+ Years Old (1 - 1-dose 75+ series) 12/26/2019 Cholesterol Screening (Lipid Panel) 01/12/2022 Depression Screening 01/12/2022 Falls Risk Assessment 01/12/2022 Hepatitis C Screening 01/12/2022 Medicare Annual Wellness Visit 01/12/2022 Social Influencers of Health Screening 01/12/2022 Hypertension/CHF/CAD Annual BMP Blood Test 05/27/2024 05/28/2023 DTaP,Tdap,and Td Vaccines (2 - Td or Tdap) 06/05/2031 06/04/2021 Pneumococcal Vaccine: 50+ Years Completed 12/07/2020, 10/15/2018, 09/30/2017 Influenza Vaccine Completed 10/20/2023, , 12/07/2020, Additional history exists COVID-19 Vaccine Completed 11/12/2023, , 06/12/2021, Additional history exists HIB Vaccines Aged Out No longer eligi ble based on patient's age to complete this topic HPV Vaccines Aged Out No longer eligi ble based on patient's age to complete this topic Hepatitis A Vaccines Aged Out No long er eligible based on patient's age to complete this topic Hepatitis B Vaccines Aged Out No long er eligible based on patient's age to complete this topic IPV Vaccines Aged Out No longer eligi ble based on patient's age to complete this topic MMR Vaccines Aged Out No longer eligi ble based on patient's age to complete this topic Meningococcal ACWY Vaccine Aged Out N o longer eligible based on patient's age to complete this topic Meningococcal B Vacine Aged Out No lo nger eligible based on patient's age to complete this topic RSV Immunization Patients Under 20 months Aged Out No longer eligible based on patient's age to complete this topic Varicella Vaccines Aged Out No longer eligible based on patient's age to complete this topic Procedures Procedure Name Priority Date/Time Associated Diagnosis Comments ANNUAL BMP BLOOD TEST Routine 05/28/2023 from Last 3 Months or Most Recently Relevant to Health Maintenance Results * Annual BMP Blood Test (05/28/2023) Annual BMP Blood Test Abstracted us Historical Provider HEALTH MAINTENANCE Final Result from Last 3 Months or Most Recently Relevant to Health Maintenance Insurance [facility] [phone] Advance Directives Documents on File Type Date Recorded Patient Lab Associate Expl anation Health Care Decision (hx) 06/04/2023 HE ALTH CARE PROXY Health Care Decision (hx) 06/04/2023 HE ALTH CARE PROXY Health Care Decision (hx) 06/04/2023 HE ALTH CARE PROXY Care Teams Product Support Specialist Relationship Specialty Start Date End Date Berta Lindsay MD [address] [place] [address] PCP - General Internal Medicine 04/19/21
--- OUTSIDE RECORDS SUMMARY | 2024-04-21 11:54 | XMS_ITS | Encounter Summary ---
Author Organization [facility] Address [address] [place] [address] Care Team Providers Care Computer Analyst Name Role Phone Berta Lindsay Md, MD Primary Care Provider Unavailable Encounter Details Date Type Department Care Team Description 06/29/[address] [facility] - [facility] 175 [facility] [address] [place] [phone] Sriram Ahn MD 175 [facility] [address] [place] [phone] Social History Tobacco Use Types Packs/Day Years Used Date Smoking Tobacco: Never Smokeless Tobacco: Never Alcohol Use Standard Drinks/Week Comments No 0 (1 standard drink = 0.6 oz pur e alcohol) Sex Assigned at Date Recorded Not on file documented as of this encounter Miscellaneous Notes * Telephone Encounter - Filomena Bonds NP - 06/29/2023 4:19 PM EDT Nevermind- looks like this change has already been made. * Telephone Encounter - Filomena Bonds NP - 06/29/2023 4:16 PM EDT Can we switch this to Dr. Ahn? Dr. Ahn would prefer to see him and have him double booked at his 11:30 slot. Thanks. * Telephone Encounter - Filomena Bonds NP - 06/29/2023 1:46 PM EDT Great- thank you! * Telephone Encounter - Kristie Westfall - 06/29/2023 1:45 PM EDT He is scheduled for 3pm with US * Telephone Encounter - Filomena Bonds NP - 06/29/2023 1:39 PM EDT Thanks guys! * Telephone Encounter - Filomena Bonds NP - 06/29/2023 1:37 PM EDT Thank you. Gabby can you call patient and make him aware of our plan? * Telephone Encounter - Kristie Westfall - 06/29/2023 1:33 PM EDT I'll call ultrasound to get him booked jonn * Telephone Encounter - Filomena Bonds NP - 06/29/2023 1:30 PM EDT Order is in for Right LE duplex ultasound to be done at [facility] * Telephone Encounter - Filomena Bonds NP - 06/29/2023 1:28 PM EDT See above * Telephone Encounter - Filomena Bonds NP - 06/29/2023 1:27 PM EDT This sounds like something that should be seen sooner. I am going to order Ultrasound of his right lower extremity, can we please call shu to see if he can have this done this afternoon or first thing tomorrow? He can then be double booked with dr. Ahn at 11:30 tomorrow documented in this encounter Plan of Treatment Not on file documented as of this encounter Visit Diagnoses Not on filedocumented in this encounter Care Teams Computer Analyst Relationship Specialty Start Date End Date Berta Lindsay MD, MD PCP - General Internal Medicine 04/19/21 documented as of this encounter
--- OUTSIDE RECORDS SUMMARY | 2024-04-21 11:54 | XMS_ITS | Encounter Summary ---
Author Organization [employer] [facility] Address [address] [place] [address] Care Team Providers Care Brands Editor Name Role Phone Lara Reddy Primary Care Provider Unavailab Berta Corley Md, MD Primary Care Provider Unavailable Encounter Details Date Type Department Care Team Description 01/20/2018 Release of Information Medical Records [address] [place] [id number] Abstract, Provider Social History Tobacco Use Types [...] on filedocumented in this encounter Care Teams Brands Editor Relationship Specialty Start Date End Date Lara Reddy PCP - General Geriatrics 01/19/18 12/30/18 Berta Lindsay MD, MD PCP - General Internal Medicine 04/19/21 documented as of this encounter
--- OUTSIDE RECORDS SUMMARY | 2024-04-21 11:54 | XMS_ITS | Clinical Summary ---
Author Organization [facility] Address [address] [place] [address] Care Team Providers Care Mine Foreman Name Role Phone Berta Lindsay Md, MD Primary Care Provider Unavailable Allergies No known active allergies Medications Medication Sig Dispensed Refills Start Date End Date Status omeprazole (PRILOSEC) 40 MG capsule Take 40 mg by mouth daily. 0 Active amlodipine (NORVASC) 5 MG tablet Take 5 mg by mouth daily. 0 Active Aspirin Low Dose 81 MG EC tablet Take 81 mg by mouth daily. 0 01/15/2021 Active doxazosin (CARDURA) 2 MG tablet TAKE 1 TABLET BY MOUTH AT BEDTIME 0 03/26/2021 Active triamcinolone acetonide (KENALOG-40) 40 MG/ML injectionIndications:Pr imary osteoarthritis of right knee Inject 2 mL into the articular space once for 1 dose. 2 mL 0 11/14/2022 Active losartan (COZAAR) 100 MG tablet Take 1 Tablet by mouth daily. 0 12/19/2022 Active naproxen (NAPROSYN) 500 MG tablet 0 Active tramadol (ULTRAM) 50 MG tablet 0 06/18/2023 Active Tranexamic Acid 650 MG Tab 0 06/18/2023 Active sulfamethoxazole-trimet hoprim (BACTRIM DS,SEPTRA DS) 800-160 MG per tablet 0 06/18/2023 Active Active Problems Problem Noted Date Primary osteoarthritis of right knee Status post total left knee replacement 03/02/2023 Hypertension 01/20/2018 GERD (gastroesophageal reflux disease) 1 03/23/2017 CKD (chronic kidney disease) 01/20/2018 Hyperlipidemia 01/20/2018 History of left inguinal hernia repair 1 Social History Tobacco Use Types Packs/Day Years Used Date Smoking Tobacco: Never Smokeless Tobacco: Never Alcohol Use Standard Drinks/Week Comments No 0 (1 standard drink = 0.6 oz pur e alcohol) Sex Assigned at Date Recorded Not on file Last Filed Vital Signs Vital Sign Reading Time Taken Comments Blood Pressure 144/86 05/28/2023 1:48 PM EDT Pulse 74 05/28/2023 1:48 PM EDT Temperature 37.1 ??C (98.7 ??F) 05/28/2023 1:48 PM ED T Respiratory Rate 15 02/22/2018 8:38 AM EST Oxygen Saturation 95% 05/28/2023 1:48 PM EDT Inhaled Oxygen Concentration - - Weight 91.2 kg (201 lb) 05/28/2023 1:48 PM EDT Height 160 cm (5' 3 ) 05/28/2023 1:48 PM EDT Body Mass Index 35.61 05/28/2023 1:48 PM EDT Plan of Treatment Health Maintenance Due Date Last Done Comments Covid-19 Vaccine (#1) 06/24/1946 DTAP/TDAP/TD (1 - Tdap) 12/26/1963 CHOLESTEROL SCREENING 1964 SHINGLES VACCINE (2 of 3) 01/04/2014 11/09/2013 INFLUENZA (#1) 2023 03/03/2019, 0907/2018, 09/30/2017, Additional history exists BMI CHECK/ADVISE 02/10/2024 PNEUMOCOCCAL VACCINE Completed 12/07/2020, 10/16/19, 09/30/2017 Advance Directives For more information, please contact: [phone] Documents on File Type Date Recorded Patient [employer] Expl anation Health Care Proxy 06/02/2023 3:21 PM [facility] CARE PROXY Care Teams Mine Foreman Relationship Specialty Start Date End Date Berta Lindsay MD, MD PCP - General Internal Medicine 04/19/21
--- OUTSIDE RECORDS SUMMARY | 2024-04-21 11:54 | XMS_ITS | Encounter Summary ---
Author Organization [facility] Address [address] [place] [address] Care Team Providers Care Promotional Model Name Role Phone Berta Lindsay Md, MD Primary Care Provider Unavailable Encounter Details Date Type Department Care Team Description 06/01/2023 Telephone [facility] - [facility] 175 [facility] [address] [place] [phone] Sriram Ahn MD 175 [facility] [address] [place], [place] [phone] Social History Tobacco Use Types Packs/Day Years [...] on filedocumented in this encounter Care Teams Promotional Model Relationship Specialty Start Date End Date Berta Lindsay MD, MD PCP - General Internal Medicine 04/19/21 documented as of this encounter
== END 2024-04-21 11:31 | disposition home or self-care (01) ==
LOC: HO.HMCC 09:48
PROVIDERS: PCP Nurse Practitioner Family; Visit Provider Nurse Practitioner Family
DX: M48.061 Spinal stenosis, lumbar region without neurogenic claudication (principal); E66.01 Morbid (severe) obesity due to excess calories; Z68.36 Body mass index [BMI] 36.0-36.9, adult; M54.16 Radiculopathy, lumbar region; G89.29 Other chronic pain; N28.9 Disorder of kidney and ureter, unspecified

== ENCOUNTER → 2024-04-21 09:48 | Outpatient (BNVA) | payer MEDICARE, SELFPAY | PROVIDERS: PCP Nurse Practitioner Family; Visit Provider Nurse Practitioner Family | DX: E66.01 Morbid (severe) obesity due to excess calories (principal); M48.061 Spinal stenosis, lumbar region without neurogenic claudication; M54.16 Radiculopathy, lumbar region; G89.29 Other chronic pain; N28.9 Disorder of kidney and ureter, unspecified | CPT/HCPCS: 96127; 99212 ==

== ENCOUNTER 2024-05-04 15:01 | Outpatient (REF) | payer MEDICARE, SELFPAY ==
--- NOTE | ~2024-05-04 | US_ITS ---
EXAMINATION: US KIDNEY BILATERAL HISTORY: N28.9 - Disorder of kidney and ureter, unspecified TECHNIQUE: Real-time grayscale ultrasound imaging of the kidneys was performed and images were reviewed. COMPARISON: Correlation is made with an unenhanced CT of the abdomen dated 06/22/2019. FINDINGS: Right kidney: The right kidney measures 15.4 x 6.4 x 6.1 cm. Renal parenchymal echotexture and thickness are normal. There is an 8.6 x 6.3 x 11.8 cm simple cyst in the interpolar region of the right kidney and a 7.6 x 6.2 x 7.0 cm simple cyst at the lower pole. An additional 2.3 x 2.1 x 1.7 cm septated cyst is noted at the lower pole. There is no hydronephrosis or renal calculi. Left Kidney: The left kidney measures 12.8 x 5.1 x 5.1 cm. Renal parenchymal echotexture and thickness are normal. There is a 2.8 x 1.6 x 2.7 cm septated cyst in the interpolar region. There is no hydronephrosis or renal calculi. US/US renal BI IMPRESSION: Bilateral renal cysts as described, 2 of which are minimally complicated demonstrating septations. Follow-up is recommended. Electronically signed by: Jensen Carlson MD 05/04/2024 03:36 PM EDT
== END 2024-05-04 15:02 | disposition home or self-care (01) ==
LOC: HO.HMGCX 15:01
PROVIDERS: PCP Nurse Practitioner Family; Visit Provider Nurse Practitioner Family
DX: N28.9 Disorder of kidney and ureter, unspecified (principal)
CPT/HCPCS: 76775

== ENCOUNTER → 2024-05-04 15:02 | Outpatient (BNV) | payer MEDICARE, SELFPAY | PROVIDERS: PCP Nurse Practitioner Family; Visit Provider Radiology Diagnostic Radiology | DX: N28.1 Cyst of kidney, acquired (principal) | CPT/HCPCS: 76775 ==

== ENCOUNTER 2024-06-30 09:54 | Outpatient (AMB) | payer MEDICARE, SELFPAY ==
--- NOTE | 2024-06-30 10:07 | A.OFFVIS_ITS ---
Intake Visit Reasons: bilateral renal cysts Intake Note: New patient presents today for initial visit for bilateral renal cysts Urology Medication:None Blood Thinner:Aspirin Antibiotic Allergies:None Signal Operator Technical Required: Yes Signal Operator Technical Services: Signal Operator Technical Present Allergies No Known Allergies [No Known Allergies*] Allergy (Verified 06/30/24 10:08) Medication List - Last Reconciled 06/30/24 by Soha Jarrett MD amlodipine 5 mg PO DAILY aspirin 81 mg PO DAILY doxazosin 2 mg PO BEDTIME losartan 100 mg PO DAILY 90 days omeprazole 40 mg PO QAM HPI Comments Details: 06/30/2024--Darrell is a 78-year-old male who is here with his daughter who interprets for him. He is referred due to bilateral complex renal cysts. Past medical history hypertension, nephrotic syndrome, large B-cell lymphoma. I have reviewed renal ultrasound performed on 05/04/2024, small bilateral septated renal cysts are observed. Further evaluation is recommended. I have discussed MRI with and without IV gadolinium renal mass protocol. In review of his chart he had a PSA done 03/12/2023 which was 1.66 ng/mL. The patient is on doxazosin 2 mg at bedtime. He denies any obstructive voiding symptoms. He denies nocturia. [facility] Medical History Nephrotic syndrome Dyslipidemia Large B-cell lymphoma GERD (gastroesophageal reflux disease) History of renal failure Surgical History History of total right knee replacement H/O colonoscopy Hx of left inguinal hernia repair History of left knee replacement Social History Housing: House Alcohol intake: never Patient Tobacco Use Status: Never used Tobacco e-Cigarette/Vaping Use: Never Used Second Hand Smoke Exposure: No service: No Current occupational status: retired Cognitive needs: No Hearing needs: No Vision needs: No Review of Systems Const All systems reviewed & are unremarkable except as noted in HPI and below Reports no additional complaints Eyes Reports no additional complaints ENT Reports no additional complaints Card Reports no additional complaints Resp Reports no additional complaints GI Reports no additional complaints Reports as per HPI Musc Reports no additional complaints Skin/Breast Reports system reviewed and no additional complaints, except as documented Neuro Reports no additional complaints Psych Reports no additional complaints Endo Reports no additional complaints Sandip/Lymph Reports no additional complaints Aller/Immun Reports no additional complaints Physical Exam Const General: healthy appearing, no acute distress and well developed Orientation/consciousness: patient oriented x3 HEENT Head: Yes normocephalic and Yes atraumatic Eyes Conjunctivae: conjunctivae normal Neck Neck: Yes normal visual inspection Chest Chest palpation & inspection: normal inspection of the chest Resp Effort & Inspection: normal respiratory effort GI Inspection: Yes normal to inspection Neuro General: patient oriented x3 Psych Appearance: grossly normal Affect: normal affect Results AMB Urinalysis, Automated UA Leukoctes 0 Colt/uL Last Edit by Emily Munoz on 06/30/24 11:03 UA Nitrite Negative Last Edit by Emily Munoz on 06/30/24 11:03 UA Urobilinogen 17 mg/dL Last Edit by Emily Munoz on 06/30/24 11:03 UA Protein 1 mg/dL Last Edit by Emily Munoz on 06/30/24 11:03 UA pH 6.0 Last Edit by Emily Munoz on 06/30/24 11:03 UA Blood 0 Berto/uL Last Edit by Emily Munoz on 06/30/24 11:03 UA Specific [place] 1.015 Last Edit by Emily Munoz on 06/30/24 11:03 UA Ketone Negative Last Edit by Emily Munoz on 06/30/24 11:03 UA Bilirubin 0 mg/dL Last Edit by Emily Munoz on 06/30/24 11:03 UA Glucose 0 mg/dL Last Edit by Emily Munoz on 06/30/24 11:03 Results Reviewed Results Reviewed: Laboratory Last Values Urine pH (Auto) 6.0 06/30/24 10:34 Specific [place] (Auto) 1.015 06/30/24 10:34 Urine Protein (Auto) 1 mg/dL 06/30/24 10:34 Glucose (UA)(Auto) 0 mg/dL 06/30/24 10:34 Urine Ketones (Auto) Negative 06/30/24 10:34 Urine Blood (Auto) 0 Berto/uL 06/30/24 10:34 Urine Nitrite (Auto) Negative 06/30/24 10:34 Urine Bilirubin (Auto) 0 mg/dL 06/30/24 10:34 Urine Urobilinogen (Auto) 17 mg/dL 06/30/24 10:34 Leukocyte Esterase (Auto) 0 Colt/uL 06/30/24 10:34 Date of Service: 05/04/24 EXAMINATION: US KIDNEY BILATERAL HISTORY: N28.9 - Disorder of kidney and ureter, unspecified TECHNIQUE: Real-time grayscale ultrasound imaging of the kidneys was performed and images were reviewed. COMPARISON: Correlation is made with an unenhanced CT of the abdomen dated 06/22/2019. FINDINGS: Right kidney: The right kidney measures 15.4 x 6.4 x 6.1 cm. Renal parenchymal echotexture and thickness are normal. There is an 8.6 x 6.3 x 11.8 cm simple cyst in the interpolar region of the right kidney and a 7.6 x 6.2 x 7.0 cm simple cyst at the lower pole. An additional 2.3 x 2.1 x 1.7 cm septated cyst is noted at the lower pole. There is no hydronephrosis or renal calculi. Left Kidney: The left kidney measures 12.8 x 5.1 x 5.1 cm. Renal parenchymal echotexture and thickness are normal. There is a 2.8 x 1.6 x 2.7 cm septated cyst in the interpolar region. There is no hydronephrosis or renal calculi. IMPRESSION: Bilateral renal cysts as described, 2 of which are minimally complicated demonstrating septations. Follow-up is recommended. Assessment & Plan Assessment & Plan (1) Kidney cysts: Code(s): N28.1 - Cyst of kidney, acquired Category: Medical (2) Complex renal cyst: Code(s): N28.1 - Cyst of kidney, acquired Category: Medical (3) Screening PSA (prostate specific antigen): Code(s): Z12.5 - Encounter for screening for malignant neoplasm of prostate Category: Medical Plan MR abdomen renal mass protocol, BUN creatinine, PSA Orders: Orders Creatinine Today N28.1 - Cyst of kidney, acquired AMB Urinalysis Automated Today Z13.9 - Encounter for screening, unspecified Blood Urea Nitrogen Today N28.1 - Cyst of kidney, acquired PSA,Total (Free>4and<10) Today Z12.5 - Encounter for screening for malignant neoplasm of prostate MR abdomen wo/w con 3 Months N28.1 - Cyst of kidney, acquired Patient Instructions: The patient had an opportunity to ask questions regarding treatment plan. The patient expressed understanding and agreement with the above treatment plan. The patient is aware they should contact our office by phone for worsening of their current condition or the appearance of new symptoms. Compliance is encouraged with any medications and followup testing that is ordered. It is a privilege to be allowed the opportunity to participate in the urologic care of your patient. If you have any questions or concerns regarding treatment for the above conditions please do not hesitate to contact me. The office telephone contact is [phone]. This note is constructed in part using voice recognition software. While every effort has been made to ensure accuracy head of biology errors may have been included. Yours sincerely, Soha Jarrett MD Coding Level of Care Code New Pt Level 4 (19347) Diagnoses Kidney cysts N28.1 Complex renal cyst N28.1 Screening PSA (prostate specific antigen) Z12.5
--- OUTSIDE RECORDS SUMMARY | 2024-06-30 10:16 | XMS_ITS | Encounter Summary ---
Author Organization [facility] Address [address] [place] [address] Care Team Providers Care Character Actress Name Role Phone Farrah Goodman Primary Care Provider UnavailLara Garrett Primary Care Provider UnavailBerta Funk Md, MD Primary Care Provider Unavailable Encounter Details Date Type Department Care Team Description 01/08/2018 Transfer Records Medical Records [address] [place] [id number] Abstract, Provider Social History Tobacco Use Types [...] on filedocumented in this encounter Care Teams Character Actress Relationship Specialty Start Date End Date Farrah Goodman PCP - General 06/16/07 01/18/18 Lara Reddy PCP - General Geriatrics 01/19/18 12/30/18 Berta Lindsay MD, PCP - General Internal Medicine 04/19/21 documented as of this encounter
--- OUTSIDE RECORDS SUMMARY | 2024-06-30 10:16 | XMS_ITS | Encounter Summary ---
Author Organization [facility] Address [address] [place] [address] Care Team Providers Care Pharmaceutical Scientist Name Role Phone Berta Lindsay Md, MD Primary Care Provider Unavailable Encounter Details Date Type Department Care Team Description 03/29/2021 SCAN [facility] [address] [place] [address] [place] [phone] Ariel Hernandez PA-C Social History Tobacco Use Types Packs/Day Years [...] on filedocumented in this encounter Care Teams Pharmaceutical Scientist Relationship Specialty Start Date End Date Berta Lindsay MD, MD PCP - General Internal Medicine 04/19/21 documented as of this encounter
--- OUTSIDE RECORDS SUMMARY | 2024-06-30 10:17 | XMS_ITS | Clinical Summary ---
Author Organization [facility] Address [address] [place] [address] Phone Care Team Providers Care Line Technician Name Role Phone Berta Lindsay MD Primary Care Provider Allergies No known active allergies Medications amLODIPine (NORVASC) 5 mg tablet Take 5 mg by mouth daily. Active aspirin 81 mg EC tablet Take 81 mg by mouth daily. 1 Active doxazosin (CARDURA) 2 mg tablet TAKE 1 TABLET BY MOUTH AT BEDTIME 2 Active losartan (COZAAR) 100 mg tablet Take 1 Tablet by mouth daily. 3 Active naproxen (NAPROSYN) 500 mg tablet Active omeprazole (PriLOSEC) [address] capsule Take 40 mg by mouth daily. Active sulfamethoxazo le-trimethopri m (BACTRIM DS,SEPTRA DS) 800-160 mg per tablet 4 Active acetaminophen (TYLENOL) 500 mg tablet Take 2 tablets (1,000 mg total) by mouth. 4 Active traMADoL (ULTRAM) 50 mg tablet 4 06/17/19 25 Discontinued tranexamic acid (LYSTEDA) 650 mg tablet tablet 4 06/17/19 25 Discontinued Active Problems Problem Noted Date Diagnosed Date Status post total bilateral knee replacement 09/2024 CKD (chronic kidney disease) 01/20/2018 GERD (gastroesophageal reflux disease) 8 Hyperlipidemia 01/20/2018 Hypertension 01/20/2018 Resolved Problems Problem Noted Date Diagnosed Date Resolved Date Status post total right knee replacement 12/30/2023 06/16/2024 Primary osteoarthritis of right knee 03/02/2023 06/16/2024 Status post total left knee replacement 03/02/2023 06/16/2024 Encounters Date Type Department Care Team Description 06/16/2024 8:30 AM EDT Office Visit Orth[facility] - [place] [address] [place] [phone] Sriram Ahn MD Follow-up exam (Primary Dx); Status post total bilateral knee replacement; Spinal stenosis of lumbar region with neurogenic claudication; Chronic low back pain, unspecified back pain laterality, unspecified whether sciatica present from Last 3 Months Surgical History Surgery Date Site/Laterality Comments TOTAL KNEE ARTHROPLASTY 08/2018 Left PROCEDURE: HISTORICAL TOTAL KNEE REPLACE; COMMENT: Dr Morrissey KNEE SURGERY 2007 Right PROCEDURE: HISTORICAL KNEE SURGERY; COMMENT: Foreign Body Excision and Debridement Medical History Medical History Date Comments Hx of lymphoma 2011 DX:Hx of lymphom a; COMMENT: Hx of Lymphoma CA 2011 Social History Tobacco Use Types Packs/Day Years [...] Blood Pressure 144/86 05/28/2023 1:48 PM EDT Sit ting L Arm Pulse 74 05/28/2023 1:48 PM [...] (2 of 3) 01/04/2014 11/09/2013 RSV Immunization Adult Patients (1 - 1-dose 75+ series) 12/26/2019 Cholesterol Screening (Lipid Panel) 01/12/2022 Depression Screening 01/12/2022 Falls Risk Assessment 01/12/2022 Hepatitis C Screening 01/12/2022 Medicare Annual Wellness Visit 01/12/2022 Social Influencers of Health Screening 01/12/2022 COVID-19 Vaccine (8 - Moderna risk season) 2024 11/12/2023, 03/03/2023, 01/07/2022, Additional history exists Hypertension/CHF/CAD Annual BMP Blood Test 05/27/2024 05/28/2023 DTaP,Tdap,and Td Vaccines (2 - Td or Tdap) 06/05/2031 06/04/2021 Pneumococcal Vaccine: 50+ Years Completed 12/07/2020, 10/15/2018, 09/30/2017 Influenza Vaccine Completed 10/20/2023, , 12/07/2020, Additional history exists HIB Vaccines Aged Out [...] age to complete this topic Meningococcal B Vaccine Aged Out No l onger eligible based on patient's age to complete this topic RSV Immunization Patients Under 20 months Aged Out No longer eligible based on patient's age to complete this topic Varicella Vaccines Aged Out No longer eligible based on patient's age to complete this topic Procedures Procedure Name Priority Date/Time Associated Diagnosis Comments XR KNEE 3 VIEWS RIGHT Routine 06/16/2024 8:08 AM EDT Follow-up exam Status post total right knee replacement ANNUAL BMP BLOOD TEST Routine 05/28/2023 from Last 3 Months or Most Recently Relevant to Health Maintenance Results * XR Knee 3 Views Right (06/16/2024 8:08 AM EDT) Anatomical Region Laterality Modality Lower Extremities, Knee Right Computed Radiography Narrative 06/17/2024 2:46 PM EDT 3 views of the right knee obtained today including AP, Lateral, sunrise were reviewed. ??These show right cemented posterior stabilized total knee replacement with patellar resurfacing. ??Implants appear well-fixed and well-positioned. ??No progressive or circumferential radiolucencies, patella tracking centrally without tilt. Sriram Ahn MD IMG XR PROCEDURES Fin al Result * Annual BMP Blood Test (05/28/2023) Annual BMP Blood Test Abstracted Historical Provider HEALTH MAINTENANCE Final Result from Last 3 Months or Most Recently Relevant to Health Maintenance Insurance [employer] MEDICARE Advance Directives Documents on File Type Date Recorded Patient Nanofabrication Specialist Expl anation Health Care Decision (hx) 06/04/2023 HE ALTH CARE PROXY Health Care Decision (hx) 06/04/2023 HE ALTH CARE PROXY Health Care Decision (hx) 06/04/2023 HE ALTH CARE PROXY Care Teams Line Technician Relationship Specialty Start Date End Date Berta Lindsay MD [address] [place] [address] PCP - General Internal Medicine 04/19/21
--- OUTSIDE RECORDS SUMMARY | 2024-06-30 10:17 | XMS_ITS | Encounter Summary ---
Author Organization [facility] Address [address] [place] [address] Care Team Providers Care Bariatric Nurse Name Role Phone Berta Lindsay Md, MD Primary Care Provider Unavailable Encounter Details Date Type Department Care Team Description 07/15/2023 SCAN [facility] Medical [facility] [address] [facility] [address] [place] [phone] Elke Pedro MD [address] [facility] [address] [place] [address] Social History Tobacco Use Types Packs/Day Years [...] on filedocumented in this encounter Care Teams Bariatric Nurse Relationship Specialty Start Date End Date Berta Lindsay MD, MD PCP - General Internal Medicine 04/19/21 documented as of this encounter
--- OUTSIDE RECORDS SUMMARY | 2024-06-30 10:17 | XMS_ITS | Encounter Summary ---
Author Organization [facility] Address [address] [place] [address] Care Team Providers Care Studio Technician Video Operator Name Role Phone Berat Lindsay Md, MD Primary Care Provider Unavailable Encounter Details Date Type Department Care Team Description 06/01/2023 Telephone [facility] Medical [facility] [address] [facility] [address] [place] [phone] Sriram Ahn MD 175 [facility] [address] [place], [place] [phone] Social History Tobacco Use Types Packs/Day Years [...] on filedocumented in this encounter Care Teams Studio Technician Video Operator Relationship Specialty Start Date End Date Berta Lindsay MD, MD PCP - General Internal Medicine 04/19/21 documented as of this encounter
--- OUTSIDE RECORDS SUMMARY | 2024-06-30 10:17 | XMS_ITS | Encounter Summary ---
Author Organization [facility] Address [address] [place] [address] Care Team Providers Care Individual Pension Consultant Name Role Phone Berta Lindsay Md, MD Primary Care Provider Unavailable Encounter Details Date Type Department Care Team Description 09/15/2023 SCAN [facility] Medical [facility] [address] [facility] [address] [place] [phone] Sriram Ahn MD 175 [facility] [address] [place], [place] [phone] Social History Tobacco Use Types Packs/Day Years [...] on filedocumented in this encounter Care Teams Individual Pension Consultant Relationship Specialty Start Date End Date Berta Lindsay MD, MD PCP - General Internal Medicine 04/19/21 documented as of this encounter
--- OUTSIDE RECORDS SUMMARY | 2024-06-30 10:17 | XMS_ITS | Encounter Summary ---
Author Organization [facility] Address [address] [place] [address] Care Team Providers Care Physiology Teacher Name Role Phone Berta Lindsay Md, MD Primary Care Provider Unavailable Encounter Details Date Type Department Care Team Description 05/22/2023 Telephone [facility] Medical [facility] [address] [facility] [address] [place] [phone] Sriram Ahn MD [address] [facility] [address] [place], [place] [phone] Social History Tobacco Use Types Packs/Day Years [...] on filedocumented in this encounter Care Teams Physiology Teacher Relationship Specialty Start Date End Date Berta Lindsay MD, MD PCP - General Internal Medicine 04/19/21 documented as of this encounter
--- OUTSIDE RECORDS SUMMARY | 2024-06-30 10:17 | XMS_ITS | Encounter Summary ---
Author Organization [facility] Address [address] [place] [address] Care Team Providers Care Elementary Supervisor Name Role Phone Berta Lindsay Md, MD Primary Care Provider Unavailable Encounter Details Date Type Department Care Team Description 09/15/2023 SCAN [facility] Medical [facility] [address] [facility] [address] [place] [phone] Sriram Ahn MD 175 [facility] [address] [place], [place] [phone] Social History Tobacco Use Types Packs/Day Years [...] on filedocumented in this encounter Care Teams Elementary Supervisor Relationship Specialty Start Date End Date Berta Lindsay MD, MD PCP - General Internal Medicine 04/19/21 documented as of this encounter
--- OUTSIDE RECORDS SUMMARY | 2024-06-30 10:17 | XMS_ITS | Clinical Summary ---
Author Organization [facility] Address [address] [place] [address] Phone Care Team Providers Care Ceramic Maker Demonstrator Name Role Phone Skye Lindsay MD Primary Care Provider [phone] Allergies No known active allergies Medications losartan [...] Due Date Last Done Comments Pneumococcal Vaccine: 50+ Ye ars (1 of 2 - PCV) 12[birth year]26/1964 Influenza Vaccine (Season Ended) 2024 Hepatitis B Vaccine Aged Out No longe r eligible based on patient's age to complete this topic Insurance [facility] Medicare Care Teams Ceramic Maker Demonstrator Relationship Specialty Start Date End Date Skye Lindsay MD [address] [place] [address] PCP - General 02/20/20
--- OUTSIDE RECORDS SUMMARY | 2024-06-30 10:17 | XMS_ITS | Encounter Summary ---
Author Organization [facility] Address [address] [place] [address] Care Team Providers Care Toy Department Manager Name Role Phone Berta Lindsay Md, MD Primary Care Provider Unavailable Encounter Details Date Type Department Care Team Description 07/24/2023 SCAN [facility] Medical [facility] [address] [facility] [address] [place] [phone] Sriram Ahn MD 175 [facility] [address] [place], [place] [phone] Social History Tobacco Use Types Packs/Day Years [...] on filedocumented in this encounter Care Teams Toy Department Manager Relationship Specialty Start Date End Date Berta Lindsay MD, MD PCP - General Internal Medicine 04/19/21 documented as of this encounter
--- OUTSIDE RECORDS SUMMARY | 2024-06-30 10:17 | XMS_ITS | Encounter Summary ---
Author Organization [facility] Address [address] [place] [address] Care Team Providers Care Briquette Operator Name Role Phone Berta Lindsay Md, MD Primary Care Provider Unavailable Encounter Details Date Type Department Care Team Description 06/29/2023 Telephone [facility] [address] [facility] [address] [place] [phone] Sriram Ahn MD 175 [facility] [address] [place], [place] [phone] Social History Tobacco Use Types Packs/Day Years [...] LE duplex ultasound to be done at [facility] * Telephone Encounter - Filomena Bonds NP [...] on filedocumented in this encounter Care Teams Briquette Operator Relationship Specialty Start Date End Date Berta Lindsay MD, MD PCP - General Internal Medicine 04/19/21 documented as of this encounter
--- OUTSIDE RECORDS SUMMARY | 2024-06-30 10:17 | XMS_ITS | Encounter Summary ---
Author Organization [facility] Address [address] [place] [address] Care Team Providers Care Language And Literature Division Chair Name Role Phone Berta Lindsay Md, MD Primary Care Provider Unavailable Encounter Details Date Type Department Care Team Description 08/10/2023 [facility] Records [facility] Medical [facility] [address] [facility] [address] [place] [phone] Sriram Ahn MD 175 [facility] [address] [place] [address] Social History Tobacco Use Types Packs/Day Years [...] on filedocumented in this encounter Care Teams Language And Literature Division Chair Relationship Specialty Start Date End Date Berta Lindsay MD, MD PCP - General Internal Medicine 04/19/21 documented as of this encounter
--- OUTSIDE RECORDS SUMMARY | 2024-06-30 10:17 | XMS_ITS | Encounter Summary ---
Author Organization [facility] Address [address] [place] [address] Care Team Providers Care Medical Claims Specialist Name Role Phone Berta Lindsay Md, MD Primary Care Provider Unavailable Encounter Details Date Type Department Care Team Description 06/26/2023 SCAN [facility] Medical [facility] [address] [facility] [address] [place] [phone] Sriram Ahn MD 175 [facility] [address] [place], [place] [phone] Social History Tobacco Use Types Packs/Day Years [...] on filedocumented in this encounter Care Teams Medical Claims Specialist Relationship Specialty Start Date End Date Berta Lindsay MD, MD PCP - General Internal Medicine 04/19/21 documented as of this encounter
== END 2024-06-30 10:41 | disposition home or self-care (01) ==
LOC: HO.HUSH 09:55
PROVIDERS: PCP Nurse Practitioner Family; Visit Provider Urology
DX: N28.1 Cyst of kidney, acquired (principal); Z12.5 Encounter for screening for malignant neoplasm of prostate; Z13.9 Encounter for screening, unspecified
CPT/HCPCS: 99204

== ENCOUNTER → 2024-06-30 09:54 | Outpatient (BNVA) | payer MEDICARE, SELFPAY | PROVIDERS: PCP Nurse Practitioner Family; Visit Provider Urology | DX: Z12.5 Encounter for screening for malignant neoplasm of prostate (principal); N28.1 Cyst of kidney, acquired | CPT/HCPCS: 81003; 99202 ==

== ENCOUNTER 2024-07-12 09:57 | Outpatient (REF) | payer MEDICARE, SELFPAY ==
[2024-07-12 18:51] LABS: Blood Urea Nitrogen 22 mg/dL (9-16); Estimated Glomerular Filt Rate > 60
[2024-07-12 19:15] LABS: PSA,Total (Free>4and<10) 2.17 ng/mL (0.00-4.00)
== END 2024-07-12 09:58 | disposition home or self-care (01) ==
LOC: HO.HKASLDS 09:57
PROVIDERS: Visit Provider Urology
DX: Z12.5 Encounter for screening for malignant neoplasm of prostate (principal); N28.1 Cyst of kidney, acquired
CPT/HCPCS: 36415; 82565; 84153; 84520

== ENCOUNTER 2024-08-05 08:23 | Outpatient (REF) | payer MEDICARE, SELFPAY ==
--- OUTSIDE RECORDS SUMMARY | 2024-08-05 08:31 | XMS_ITS | Clinical Summary ---
Author Organization [address] [facility] Address [address] [place] [address] Phone Care Team Providers Care Press Clipper Name Role Phone Berta Lindsay MD Primary Care Provider [phone]- [phone] Allergies No known active allergies Medications amLODIPine [...] DS) 800-160 mg per tablet 06/18/2023 Active acetaminophen (TYLENOL) 500 mg tablet Take 2 tablets (1,000 mg total) by mouth. 06/18/2023 Active Active Problems Problem Noted Date [...] AM EDT Office Visit Orthopedic Surgery - [place] [address] [facility] [address] [place] [id number] Sriram Ahn MD Follow-up exam (Primary Dx); [...] Due Date Last Done Comments Zoster Vaccines (1 of 2) 01/04/2014 11/09/2013 RSV Immunization Adult Patients (1 - 1-dose 75+ series) 12/26/2019 Cholesterol Screening (Lipid Panel) 01/12/2022 Depression Screening 01/12/2022 Falls Risk Assessment 01/12/2022 Hepatitis C Screening 01/12/2022 Medicare Annual Wellness Visit 01/12/2022 Social Influencers of Health Screening 01/12/2022 COVID-19 Vaccine (8 - Moderna risk ) 05/12/2024 11/12/2023, 03/03/2023, 01/07/2022, Additional history exists Hypertension/CHF/CAD [...] today including AP, Lateral, sunrise were reviewed. These show right cemented posterior stabilized total knee replacement with patellar resurfacing. Implants appear well-fixed and well-positioned. No progressive or circumferential radiolucencies, patella tracking centrally without tilt. Sriram Ahn MD IMG XR PROCEDURES Fin al Result * Annual BMP Blood Test (05/28/2023) Annual BMP Blood Test Abstracted Historical Provider HEALTH MAINTENANCE Final Result from Last 3 Months or Most Recently Relevant to Health Maintenance Insurance [employer] MEDICARE Advance Directives Documents on File Type Date Recorded Patient Saw Filer Expl anation Health Care Decision (hx) 06/04/2023 HE ALTH CARE PROXY Health Care Decision (hx) 06/04/2023 HE ALTH CARE PROXY Health Care Decision (hx) 06/04/2023 HE ALTH CARE PROXY Care Teams Press Clipper Relationship Specialty Start Date End Date Berta Lindsay MD [address] [place] [address] PCP - General Internal Medicine 04/19/21
[2024-08-05 17:24] LABS: MANUAL DIFF FLAG NO
[2024-08-05 17:40] LABS: Appearance Urine Clear; Basophils Percent Auto 0.6 % (0-2); Color Urine Yellow; Eosinophils Absolute Auto 0.1 X10*3/uL (0.0-0.4); Eosinophils Percent Auto 1.3 % (0-4); Glucose Urine UA Negative (Negative); Hemoglobin 11.9 g/dl (14.0-18.0); Imm Gran Abs Auto 0.02 X10*3/uL (0.00-0.03); Imm Gran Pct Auto 0.3 % (0.0-0.4); Leukocyte Esterase Urine Negative (Negative); Lymphocytes Absolute Auto 1.3 X10*3/uL (1.2-4.9); Lymphocytes Percent Auto 19.1 % (20-40); Mean Corpuscular HGB Conc 33.1 g/dl (31.0-36.0); Mean Corpuscular Hemoglobin 31.7 pg (27.0-33.0); Mean Platelet Volume 9.8 fL (9.4-12.4); Monocytes Absolute Auto 0.6 X10*3/uL (0.1-1.2); Monocytes Percent Auto 9.1 % (2-11); Neutrophils Absolute Auto 4.8 x10*3/uL (2.0-8.3); Neutrophils Percent Auto 69.6 % (45-73); Nitrite Urine Negative (Negative); PH 6.5 (5.0-9.0); Platelet Count 197 X10*3/uL (160-400); Red Blood Count 3.75 X10*6/uL (4.60-5.80); Red Cell Distribution Width 14.1 % (11.0-16.0); Urine Blood Negative (Negative); Urine Ketones Negative (Negative); Urine Protein Negative (Neg-Trace); White Blood Count 6.9 X10*3/uL (4.8-10.8)
[2024-08-05 17:47] LABS: Alanine Aminotransferase 13 U/L (0-40); Albumin Level 3.7 g/dL (3.5-5.0); Alkaline Phosphatase 80 U/L (39-117); Anion Gap 12 (12-20); Aspartate Amino Transferase 24 U/L (5-37); Bilirubin Total 0.5 mg/dL (0.0-1.0); Blood Urea Nitrogen 18 mg/dL (9-16); Calcium 9.2 mg/dL (8.4-10.2); Carbon Dioxide 25 mmol/L (22-29); Chloride 107 mmol/L (96-108); Cholesterol 165 mg/dL (<200); Estimated Glomerular Filt Rate > 60; Glucose Fasting 84 mg/dL (60-99); HDL Cholesterol 38 mg/dL (>40); LDL Cholesterol Calculated 114 mg/dL (<100); Sodium 140 mmol/L (135-145); Total Protein 6.7 g/dL (6.5-8.0); Triglycerides 67 mg/dL (<150)
[2024-08-05 18:04] LABS: TSH reflex Free T4 1.45 uIU/mL (0.32-4.0)
== END 2024-08-05 08:24 | disposition home or self-care (01) ==
LOC: HO.HKASLDS 08:23
PROVIDERS: Visit Provider Nurse Practitioner Family
DX: N28.9 Disorder of kidney and ureter, unspecified (principal); M54.16 Radiculopathy, lumbar region; G89.29 Other chronic pain; E66.01 Morbid (severe) obesity due to excess calories
CPT/HCPCS: 36415; 80053; 80061; 81003; 84443; 85025

== ENCOUNTER 2024-08-16 10:17 | Outpatient (AMB) | payer MEDICARE, SELFPAY ==
[2024-08-16 10:22] VITALS: BP 122/74; PULSE 88; O2SAT 97; BMI 34.9
--- NOTE | 2024-08-16 10:22 | A.OFFPC_ITS ---
Vital Signs 08/16/24 10:22 Height 5 ft 3 in Weight 197 lb BMI 34.9 BP 122/74 Blood Pressure Location Rt brachial Position Sitting Pulse 88 Pulse Source Pulse Oximeter Pulse Oximetry (%) 97 Oxygen Delivery Method Room Air Intake Visit Reasons: Annual PE - see comments Clinical Medical Transcriptionist Required: No Allergies No Known Allergies (No Known Allergies*) Allergy (Verified 08/16/24 11:42) Medication List - Last Reconciled 08/16/24 by STEPAN LocoP- amlodipine 5 mg PO DAILY aspirin 81 mg PO DAILY doxazosin 2 mg PO BEDTIME losartan 100 mg PO DAILY 90 days omeprazole 40 mg PO QAM Tobacco use date assessed: 04/21/24 Dental Screening Dental Screen Date: 04/21/24 HPI Annual PE - see comments HPI Details History of Present Illness The patient is a 78-year-old male presenting with a physical exam. He denies any chest pain, fevers, chills, night sweats, or shortness of breath. His colon cancer screening is up to date. The patient has a history of large B-cell lymphoma diagnosed in 2021, which is currently in remission. He denies any signs of lymph node activity and reports no night sweats. He is under urological care for kidney cysts, with his next appointment scheduled for September. Recent laboratory tests, including PSA levels, are stable and within normal limits. He denies any urinary issues, and his kidney function is reported as great. The patient is morbidly obese, which was noted during the examination. skin tags noted, getting caught on clothing Health Maintenance - Colon cancer screening is up to date Social History Review of Systems - Cardiovascular: Denies chest pain - Constitutional: Denies fevers, chills, night sweats - Respiratory: Denies shortness of breat h - Gastrointestinal: Denies constipation, diarrhea - Genitourinary: Denies urinary issues - Psychiatric: Denies suicidal ideation, homicidal ideation Physical Exam General: Cooperative, healthy appearing, comfortable, no acute distress and well developed, morbidly obese Orientation: Patient oriented x3 Limitations: No limitations Head: Normal to inspection Ears: Hearing grossly normal bilaterally Nose: Normal external nose present Face and sinus: Normal facial exam Eyes: Appearance normal, both eyes and all related structures Neck: Normal visual inspection and Yes full ROM, no cervical/axillary lymphadenopathy Respiratory: Normal respiratory effort and able to speak in complete sentences. Clear to auscultation bilaterally Cardiovascular: Regular rate and rhythm. Normal S1 and S2 GI: Normal to inspection. Soft to palpation and nontender, diastasis rectus noted : Testicles without masses/lesions and no hernias appreciated Skin: skin tag to upper chest RUE. Neuro: Patient oriented x3 Extremities: Normal to inspection Results - Labs: PSA within normal limits, kidney function tests stable Plan The patient will continue regular follow-ups for his morbid obesity, with emphasis on lifestyle modifications to manage weight. His large B-cell lymphoma remains in remission, and no active lymphadenopathy was noted; continued monitoring is advised. He will maintain regular urological consultations for kidney cysts, with the next appointment scheduled in September. Laboratory results, including PSA and kidney function tests, are stable, and no immediate interventions are required. [facility] Medical History (Updated 08/16/24 @ 11:41 by PABLITO Loco) Nephrotic syndrome Dyslipidemia Large B-cell lymphoma GERD (gastroesophageal reflux disease) History of renal failure Surgical History History of total right knee replacement H/O colonoscopy Hx of left inguinal hernia repair History of left knee replacement Social History Housing: House Alcohol intake: never Patient Tobacco Use Status: Never used Tobacco e-Cigarette/Vaping Use: Never Used Second Hand Smoke Exposure: No service: No Current occupational status: retired Cognitive needs: No Hearing needs: No Vision needs: No Questionnaire Thrive Questionnaire Date Thrive assessed: 04/21/24 BALJINDER-7 AMB Questionnaire BALJINDER-7 Date BALJINDER - 7 assessed: 11/12/21 Source: Developed by Drs. Jensen Crocker, Meggan Nixon, Wolfgang Byrd and colleagues, with an educational jourdan from [employer] Physical exam (Primary Care) Vital Signs: Last Vital Signs Pulse 88 08/16/24 10:22 BP 122/74 08/16/24 10:22 Pulse Ox 97 08/16/24 10:22 Oxygen Delivery Method Room Air 08/16/24 10:22 BMI result Body Mass Index 34.9 Tobacco/Smoking Status: Tobacco use Status Tobacco use date assessed 04/21/24 08/16/24 10:24 Patient Tobacco Use Status Never used Tobacco 08/16/24 10:24 e-Cigarette/Vaping Use Never Used 08/16/24 10:24 Thrive Assessment: Date of Thrive Assessment Date Thrive assessed 04/21/24 08/16/24 10:24 Coding Level of Care Code Est Pt Level 3 (44175) Est Pt Prev Care >65y(68969) Diagnoses Physical exam Z00.00 Skin tag L91.8 Morbid obesity E66.01 Lesion of both tunica-biloxi kidneys N28.9 Large B-cell lymphoma C85.10 Assessment & Plan Assessment & Plan (1) Physical exam: Code(s): Z00.00 - Encounter for general adult medical examination without abnormal findings Category: Medical (2) Skin tag: Code(s): L91.8 - Other hypertrophic disorders of the skin Category: Medical (3) Morbid obesity: Code(s): E66.01 - Morbid (severe) obesity due to excess calories Category: Medical (4) Lesion of both tun[place]bilox[place] kidneys: Code(s): N28.9 - Disorder of kidney and ureter, unspecified Category: Medical (5) Large B-cell lymphoma: Code(s): C85.10 - Unspecified B-cell lymphoma, unspecified site Category: Medical Plan . Orders: Referrals Dermatology Referral L91.8 - Other hypertrophic disorders of the skin
--- OUTSIDE RECORDS SUMMARY | 2024-08-16 11:09 | XMS_ITS | Clinical Summary ---
Author Organization 175 [facility] Address [address] [place] [address] Phone Care Team Providers Care Mask Designer Name Role Phone Berta Lindsay MD Primary Care Provider [phone]- [phone] Allergies No known active allergies Medications amLODIPine [...] AM EDT Office Visit Orthopedic Surgery - [place] 250 175 [facility] [address] [place] [phone] Sriram Ahn MD Follow-up exam (Primary [...] Hypertension/CHF/CAD Annual BMP Blood Test 05/27/2024 05/28/2023 Influenza Vaccine (#1) 2024 , 01/16/2022, 12/07/2020, Additional history exists DTaP,Tdap,and Td Vaccines (2 - Td or Tdap) 06/05/2031 06/04/2021 Pneumococcal Vaccine: 50+ Years Completed 12/07/2020, 10/15/2018, 09/30/2017 HIB Vaccines Aged Out No longer eligi [...] Annual BMP Blood Test Abstracted Historical Provider MD HEALTH MAINTENANCE Final Result from Last 3 Months or Most Recently Relevant to Health Maintenance Insurance [employer] MEDICARE Advance Directives Documents on File Type Date Recorded Patient Fuel Cell Designer Expl anation Health Care Decision (hx) 06/04/2023 HE ALTH CARE PROXY Health Care Decision (hx) 06/04/2023 HE ALTH CARE PROXY Health Care Decision (hx) 06/04/2023 HE ALTH CARE PROXY Care Teams Mask Designer Relationship Specialty Start Date End Date Berta Lindsay MD [address] [place] [address] PCP - General Internal Medicine 04/19/21
--- OUTSIDE RECORDS SUMMARY | 2024-08-16 11:09 | XMS_ITS | Clinical Summary ---
Author Organization [facility] Address [address] [place] [address] Phone Care Team Providers Care Therapist Name Role Phone Skye Lindsay MD Primary Care Provider +1- [phone] Allergies No known active allergies Medications losartan (COZAAR) 100 MG tablet Take 1 tablet (100 mg total) by mouth 1 (one) time each day 90 tablet 2 04/20/2020 Active aspirin (ST MARILEA) 81 MG EC tablet Take 1 tablet [...] of 2 - PCV) 12[birth year]26/1964 Influenza Vaccine (#1) 2024 Hepatitis B Vaccine Aged Out No longe r eligible based on patient's age to complete this topic Insurance [facility] Medicare Care Teams Therapist Relationship Specialty Start Date End Date Skye Lindsay MD [address] [place] [address] PCP - General 02/20/20
== END 2024-08-16 11:38 | disposition home or self-care (01) ==
LOC: HO.HMCC 10:17
PROVIDERS: PCP Nurse Practitioner Family; Visit Provider Nurse Practitioner Family
DX: Z00.00 Encounter for general adult medical examination without abnormal findings (principal); L91.8 Other hypertrophic disorders of the skin; E66.01 Morbid (severe) obesity due to excess calories; Z68.34 Body mass index [BMI] 34.0-34.9, adult; C85.10 Unspecified B-cell lymphoma, unspecified site; N28.9 Disorder of kidney and ureter, unspecified

== ENCOUNTER → 2024-08-16 10:17 | Outpatient (BNVA) | payer MEDICARE, SELFPAY | PROVIDERS: PCP Nurse Practitioner Family; Visit Provider Nurse Practitioner Family | DX: Z00.01 Encounter for general adult medical examination with abnormal findings (principal); L91.8 Other hypertrophic disorders of the skin; E66.01 Morbid (severe) obesity due to excess calories; Z68.34 Body mass index [BMI] 34.0-34.9, adult; N28.9 Disorder of kidney and ureter, unspecified; C85.10 Unspecified B-cell lymphoma, unspecified site; Z71.3 Dietary counseling and surveillance | CPT/HCPCS: 99212; 99397 ==

== ENCOUNTER 2024-09-21 10:29 | Outpatient (REF) | payer MEDICARE, SELFPAY ==
--- NOTE | ~2024-09-21 | MR_ITS ---
EXAMINATION: MR ABDOMEN WITHOUT THEN WITH IV CONTRAST HISTORY: N28.1 - Cyst of kidney, acquired COMPARISON: Correlation is made with a renal ultrasound dated 05/04/2024. TECHNIQUE: Axial in and out of phase T1-weighted gradient echo, axial diffusion weighted, and axial and coronal HASTE T2 with fat saturation images were obtained through the abdomen. Subsequently, fat suppressed axial and coronal T1-weighted images were obtained after the intravenous administration of 9 mL Gadavist. FINDINGS: Liver: There is no loss of signal intensity in the liver on opposed phase imaging to suggest steatosis. There is no enhancing liver mass. The hepatic and portal veins are patent. There is no intrahepatic biliary dilatation. Gallbladder/biliary tree: No gallstones are identified. The common bile duct is normal in caliber. No intraluminal filling defects are identified to suggest choledocholithiasis. Spleen: The spleen is unremarkable. Pancreas: The pancreas is unremarkable. There is no enhancing pancreatic mass. The pancreatic duct is normal in caliber. Adrenals: The right adrenal gland is unremarkable. There is a 1.9 cm left adrenal nodule which demonstrates loss of signal intensity on opposed phase imaging, consistent with an adenoma. Kidneys: As noted on ultrasound, there are multiple bilateral renal cysts. On the right, there is an 11.7 x 6.3 x 8.5 cm simple cyst in the interpolar region. There is a 2.4 x 1.7 x 2.0 cm septated cyst at the lower pole anteriorly and a 2.9 x 2.6 x 3.4 cm septated cyst at the lower pole. An additional 6.5 x 6.7 x 7.0 cm simple cyst is noted at the lower pole. On the left, there are multiple cysts at the upper pole measuring up to 1.3 cm in size. There is a 3.5 x 1.5 x 3.4 cm septated cyst at the lower pole. None of the cysts demonstrate associated nodularity or enhancement. There is no hydronephrosis. Lymph nodes: There is no retroperitoneal lymphadenopathy in the upper abdomen. Fluid: There is no ascites in the upper abdomen. Visualized bowel: The visualized small and large bowel loops are unremarkable in appearance. Visualized bones: The visualized bones demonstrate normal marrow signal intensity. MR/MR abdomen wo/w con IMPRESSION: 1. Multiple bilateral renal cysts, some of which demonstrate septations as noted on ultrasound. No suspicious features are seen. Continued follow-up can be performed with ultrasound. 2. 1.9 cm left adrenal adenoma. Electronically signed by: Jensen Carlson MD 09/21/2024 11:48 AM EDT
--- OUTSIDE RECORDS SUMMARY | 2024-09-21 11:24 | XMS_ITS | Clinical Summary ---
Author Organization 175 [facility] Address [address] [place] [address] Phone Care Team Providers Care Technical Sales Advisor Name Role Phone Berta Lindsay MD Primary Care Provider [phone]- [phone] Allergies No known active allergies Medications amLODIPine [...] post total left knee replacement 03/02/2023 06/16/2024 Surgical History Surgery Date Site/Laterality Comments TOTAL [...] series) 12/26/2019 Cholesterol Screening (Lipid Panel) 01/12/2022 Falls Risk Assessment 01/12/2022 Hepatitis C Screening 01/12/2022 Medicare Annual Wellness Visit 01/12/2022 Social Influencers of Health Screening 01/12/2022 Depression Screening 02/10/2024 COVID-19 Vaccine (8 - Moderna risk season) [...] Most Recently Relevant to Health Maintenance Insurance [facility] MEDICARE Advance Directives Documents on File Type Date Recorded Patient Insole Presser Expl anation Health Care Decision (hx) 06/04/2023 HE ALTH CARE PROXY Health Care Decision (hx) 06/04/2023 HE ALTH CARE PROXY Health Care Decision (hx) 06/04/2023 HE ALTH CARE PROXY Care Teams Technical Sales Advisor Relationship Specialty Start Date End Date Berta Lindsay MD [address] [place] [address] PCP - General Internal Medicine 04/19/21
--- OUTSIDE RECORDS SUMMARY | 2024-09-21 11:24 | XMS_ITS | Encounter Summary ---
Author Organization [facility] Address [address] [place] [address] Care Team Providers Care Dedicated Truck Driver Name Role Phone Farrah Goodman Primary Care Provider UnavailLara Garrett Primary Care Provider UnavailBerta Funk Md, MD Primary Care Provider Unavailable Encounter Details Date Type Department Care Team Description 01/08/2018 Transfer Records Medical Records [address] [place] [id number] Abstract, Provider Social History Tobacco Use Types [...] on filedocumented in this encounter Care Teams Dedicated Truck Driver Relationship Specialty Start Date End Date Farrah Goodman PCP - General 06/16/07 01/18/18 Lara Reddy PCP - General Geriatrics 01/19/18 12/30/18 Berta Lindsay MD, PCP - General Internal Medicine 04/19/21 documented as of this encounter
--- OUTSIDE RECORDS SUMMARY | 2024-09-21 11:24 | XMS_ITS | Clinical Summary ---
Author Organization [facility] Address [address] [place] [address] Phone Care Team Providers Care Baggage Screener Name Role Phone Skye Lindsay MD Primary Care Provider +1- [phone] Allergies No known active allergies Medications losartan [...] patient's age to complete this topic Insurance [facility] Medicare Care Teams Baggage Screener Relationship Specialty Start Date End Date Skye Lindsay MD [address] [place] [address] PCP - General 02/20/20
== END 2024-09-21 10:30 | disposition home or self-care (01) ==
LOC: HO.MRI 10:29
PROVIDERS: PCP Nurse Practitioner Family; Visit Provider Urology
DX: N28.1 Cyst of kidney, acquired (principal)
CPT/HCPCS: 74183; A9585

== ENCOUNTER → 2024-09-21 10:39 | Outpatient (BNV) | payer MEDICARE, SELFPAY | PROVIDERS: PCP Nurse Practitioner Family; Visit Provider Radiology Diagnostic Radiology | DX: D35.02 Benign neoplasm of left adrenal gland (principal) | CPT/HCPCS: 74183 ==

== ENCOUNTER 2024-10-06 08:45 | Outpatient (AMB) | payer MEDICARE, SELFPAY ==
--- NOTE | 2024-10-06 08:45 | MHC.OFFVIS ---
Intake Visit Reasons: 14w/CT/labs Intake Note: Patient presents today for: telehealth 14w/ct/labs Urology Medication:None Blood Thinner:Aspirin Labs done: 07/12 total psa 2.17, 08/05 bun 18, creat 0.82, MRI done on 09/21/24 Casino Controller Required: No Casino Controller Name: [id number]--[id number] Information Interpreted: non-clinical & clinical Accompanied by: Self / Same As Patient Allergies No Known Allergies (No Known Allergies*) Allergy (Verified 10/06/24 08:46) Medication List - Last Reconciled 10/06/24 by Soha Jarrett MD amlodipine 5 mg PO DAILY aspirin 81 mg PO DAILY doxazosin 2 mg PO BEDTIME losartan 100 mg PO DAILY 90 days omeprazole 40 mg PO QAM HPI Comments Details: 10/06/24--telehealth follow-up. Initial call voicemail left. Called again hash slinger--[place] #[id number]--[id number] MRI septated renal cysts bilaterally Bosniak type 2 no concerning thickening. Follow-up recommended. Reviewed PSA 07/12/2024-2.17 ng/mL. Follow-up in 1 year with nurse practitioner renal ultrasound and PSA prior. 06/30/2024--Darrell is a 78-year-old male who is here with his daughter who interprets for him. He is referred due to bilateral complex renal cysts. Past medical history hypertension, nephrotic syndrome, large B-cell lymphoma. I have reviewed renal ultrasound performed on 05/04/2024, small bilateral septated renal cysts are observed. Further evaluation is recommended. I have discussed MRI with and without IV gadolinium renal mass protocol. In review of his chart he had a PSA done 03/12/2023 which was 1.66 ng/mL. The patient is on doxazosin 2 mg at bedtime. He denies any obstructive voiding symptoms. He denies nocturia. FORMERLY [facility], [facility] Medical History Nephrotic syndrome Dyslipidemia Large B-cell lymphoma GERD (gastroesophageal reflux disease) History of renal failure Surgical History History of total right knee replacement H/O colonoscopy Hx of left inguinal hernia repair History of left knee replacement Social History Housing: House Alcohol intake: never Patient Tobacco Use Status: Never used Tobacco e-Cigarette/Vaping Use: Never Used Second Hand Smoke Exposure: No service: No Current occupational status: retired Cognitive needs: No Hearing needs: No Vision needs: No Review of Systems Const All systems reviewed & are unremarkable except as noted in HPI and below Reports no additional complaints Eyes Reports no additional complaints ENT Reports no additional complaints Card Reports no additional complaints Resp Reports no additional complaints GI Reports no additional complaints Reports as per HPI Musc Reports no additional complaints Skin/Breast Reports system reviewed and no additional complaints, except as documented Neuro Reports no additional complaints Psych Reports no additional complaints Endo Reports no additional complaints Sandip/Lymph Reports no additional complaints Aller/Immun Reports no additional complaints Telehealth Telehealth Telehealth Platform: Telephone Location of provider rendering services: practice address Location of patient: address on file Patient Identification confirmed using: Name, : Yes Telehealth method: voice only Patient verbally consented to treatment: Yes Patient verbally consented to billing insurance company: Yes Patient informed of any privacy concerns related to visit: Yes Minutes spent on Phone/Video with Pt.: 14 Results Reviewed Results Reviewed: Date of Service: 09/21/24 EXAMINATION: MR ABDOMEN WITHOUT THEN WITH IV CONTRAST HISTORY: N28.1 - Cyst of kidney, acquired COMPARISON: Correlation is made with a renal ultrasound dated 05/04/2024. TECHNIQUE: Axial in and out of phase T1-weighted gradient echo, axial diffusion weighted, and axial and coronal HASTE T2 with fat saturation images were obtained through the abdomen. Subsequently, fat suppressed axial and coronal T1-weighted images were obtained after the intravenous administration of 9 mL Gadavist. FINDINGS: Liver: There is no loss of signal intensity in the liver on opposed phase imaging to suggest steatosis. There is no enhancing liver mass. The hepatic and portal veins are patent. There is no intrahepatic biliary dilatation. Gallbladder/biliary tree: No gallstones are identified. The common bile duct is normal in caliber. No intraluminal filling defects are identified to suggest choledocholithiasis. Spleen: The spleen is unremarkable. Pancreas: The pancreas is unremarkable. There is no enhancing pancreatic mass. The pancreatic duct is normal in caliber. Adrenals: The right adrenal gland is unremarkable. There is a 1.9 cm left adrenal nodule which demonstrates loss of signal intensity on opposed phase imaging, consistent with an adenoma. Kidneys: As noted on ultrasound, there are multiple bilateral renal cysts. On the right, there is an 11.7 x 6.3 x 8.5 cm simple cyst in the interpolar region. There is a 2.4 x 1.7 x 2.0 cm septated cyst at the lower pole anteriorly and a 2.9 x 2.6 x 3.4 cm septated cyst at the lower pole. An additional 6.5 x 6.7 x 7.0 cm simple cyst is noted at the lower pole. On the left, there are multiple cysts at the upper pole measuring up to 1.3 cm in size. There is a 3.5 x 1.5 x 3.4 cm septated cyst at the lower pole. None of the cysts demonstrate associated nodularity or enhancement. There is no hydronephrosis. Lymph nodes: There is no retroperitoneal lymphadenopathy in the upper abdomen. Fluid: There is no ascites in the upper abdomen. Visualized bowel: The visualized small and large bowel loops are unremarkable in appearance. Visualized bones: The visualized bones demonstrate normal marrow signal intensity. IMPRESSION: 1. Multiple bilateral renal cysts, some of which demonstrate septations as noted on ultrasound. No suspicious features are seen. Continued follow-up can be performed with ultrasound. 2. 1.9 cm left adrenal adenoma. Date of Service: 05/04/24 EXAMINATION: US KIDNEY BILATERAL HISTORY: N28.9 - Disorder of kidney and ureter, unspecified TECHNIQUE: Real-time grayscale ultrasound imaging of the kidneys was performed and images were reviewed. COMPARISON: Correlation is made with an unenhanced CT of the abdomen dated 06/22/2019. FINDINGS: Right kidney: The right kidney measures 15.4 x 6.4 x 6.1 cm. Renal parenchymal echotexture and thickness are normal. There is an 8.6 x 6.3 x 11.8 cm simple cyst in the interpolar region of the right kidney and a 7.6 x 6.2 x 7.0 cm simple cyst at the lower pole. An additional 2.3 x 2.1 x 1.7 cm septated cyst is noted at the lower pole. There is no hydronephrosis or renal calculi. Left Kidney: The left kidney measures 12.8 x 5.1 x 5.1 cm. Renal parenchymal echotexture and thickness are normal. There is a 2.8 x 1.6 x 2.7 cm septated cyst in the interpolar region. There is no hydronephrosis or renal calculi. IMPRESSION: Bilateral renal cysts as described, 2 of which are minimally complicated demonstrating septations. Follow-up is recommended. Assessment & Plan Assessment & Plan (1) Complex renal cyst: Code(s): N28.1 - Cyst of kidney, acquired Category: Medical (2) Screening PSA (prostate specific antigen): Code(s): Z12.5 - Encounter for screening for malignant neoplasm of prostate Category: Medical (3) BPH (benign prostatic hyperplasia): Code(s): N40.0 - Benign prostatic hyperplasia without lower urinary tract symptoms Category: Medical Plan Reviewed MRI septated renal cysts bilaterally Bosniak type 2 no concerning thickening. Follow-up recommended. Reviewed PSA 07/12/2024-2.17 ng/mL. Follow-up in 1 year with nurse practitioner renal ultrasound and PSA prior. Orders: Orders PSA,Total (Free>4and<10) 11 Months N40.0 - Benign prostatic hyperplasia without lower urinary tract symptoms, Z12.5 - Encounter for screening for malignant neoplasm of prostate US renal BI 10 Months N28.1 - Cyst of kidney, acquired Patient Instructions: The patient had an opportunity to ask questions regarding treatment plan. The patient expressed understanding and agreement with the above treatment plan. The patient is aware they should contact our office by phone for worsening of their current condition or the appearance of new symptoms. Compliance is encouraged with any medications and followup testing that is ordered. It is a privilege to be allowed the opportunity to participate in the urologic care of your patient. If you have any questions or concerns regarding treatment for the above conditions please do not hesitate to contact me. The office telephone contact is [phone]. This note is constructed in part using voice recognition software. While every effort has been made to ensure accuracy program manufacturing leader errors may have been included. Yours sincerely, Soha Jarrett MD Coding Level of Care Code Tele Est Pt Level 3 (06442) Diagnoses Complex renal cyst N28.1 Screening PSA (prostate specific antigen) Z12.5 BPH (benign prostatic hyperplasia) N40.0
--- OUTSIDE RECORDS SUMMARY | 2024-10-06 09:28 | XMS_ITS | Clinical Summary ---
Author Organization [facility] Address [address] [place] [address] Phone Care Team Providers Care End Worker Name Role Phone Skye Lindsay MD Primary Care Provider [phone]- [phone] Allergies No known active allergies Medications losartan [...] patient's age to complete this topic Insurance [facility] Medicare Care Teams End Worker Relationship Specialty Start Date End Date Skye Lindsay MD [address] [place] [address] PCP - General 02/20/20
--- OUTSIDE RECORDS SUMMARY | 2024-10-06 09:28 | XMS_ITS | Clinical Summary ---
Author Organization [facility] Address [address] [place] [address] Phone Care Team Providers Care Accounts Payable Coordinator Name Role Phone Berta Lindsay MD Primary Care Provider [phone]- [phone] Allergies No known active allergies Medications amLODIPine [...] Most Recently Relevant to Health Maintenance Insurance [facility] MEDICARE Advance Directives Documents on File Type Date Recorded Patient Strip Tank Tender Expl anation Health Care Decision (hx) 06/04/2023 HE ALTH CARE PROXY Health Care Decision (hx) 06/04/2023 HE ALTH CARE PROXY Health Care Decision (hx) 06/04/2023 HE ALTH CARE PROXY Care Teams Accounts Payable Coordinator Relationship Specialty Start Date End Date Berta Lindsay MD [address] [place] [address] PCP - General Internal Medicine 04/19/21
== END 2024-10-06 13:31 | disposition home or self-care (01) ==
LOC: HO.HUSH 08:45
PROVIDERS: PCP Nurse Practitioner Family; Visit Provider Urology
DX: N28.1 Cyst of kidney, acquired (principal); Z12.5 Encounter for screening for malignant neoplasm of prostate; N40.0 Benign prostatic hyperplasia without lower urinary tract symptoms
CPT/HCPCS: 99213